=== PATIENT | male | born 1970 | race Caucasian/White ===

== ENCOUNTER → 2016-07-01 | Outpatient (CLI) | payer MEDICARE, OTHER ==
--- NOTE | 2016-07-01 12:37 | XR ---
EXAMINATION TYPE: XR knee complete LT DATE OF EXAM: 07/01/2016 12:28 PM COMPARISON: NONE HISTORY: Pain FINDINGS: Mild diffuse osteopenia. There is very mild narrowing of the medial compartment of the knee joint. No erosive change. No signi ficant spur formation. No intraosseous lesion. Osseous structures are intact. No acute fracture seen. IMPRESSION: 1. Mild osteoarthritis. 2. Diffuse mild osteopenia
== END | disposition home or self-care (01) ==
LOC: RADXRMAIN 11:56
PROVIDERS: ATTEND Family Medicine
DX: M17.12 Unilateral primary osteoarthritis, left knee (principal); M85.862 Other specified disorders of bone density and structure, left lower leg

== ENCOUNTER → 2016-08-08 | Outpatient (CLI) | payer MEDICARE, OTHER ==
--- NOTE | 2016-08-08 15:37 | BD ---
EXAMINATION TYPE: MG DEXA axial skeleton. DATE OF EXAM: 08/08/2016 2:43 PM COMPARISON: NONE CLINICAL HISTORY: disorder of bone and structure M85.80 Height: 5'6 Weight: 186 FRAX RISK QUESTIONS: Alcohol (3 or more units per day): no Family History (Parent hip fracture): no Glucocorticoids (More than 3mos): no (Ex: prednisone, prednisolone, methylprednisolone, dexamethasone, and hydrocortisone). History of Fracture in Adulthood: no Secondary Osteoporosis: 1. Type 1 Diabetes: no 2. Hyperthyroidism: no 3. Menopause before 45: NA 4. Malnutrition: no 5. Chronic liver disease: no Rheumatoid Arthritis: no Current Tobacco Use: no RISK FACTORS HISTORY OF: History of Wrist Fracture: rt When: child Diet low in dairy products/other sources of calcium: MEDICATIONS: Additional Medications: heart, ADHD, depression, high blood pressure Additional History: osteopenia EXAM MEASUREMENTS: Bone mineral densitometry was performed using the Vend System. Bone mineral density as measured about the Lumbar spine is: ----- L1-L4(G/cm2): 1.135 T Score Values are as follows: ----- L2: 0.0 ----- L3: -0.1 ----- L4: -0.9 ----- L1-L4: -0.4 Bone mineral density about the R hip (g/cm2): 0.814 Bone mineral density about the L hip (g/cm2): 0.785 T Score values are as follows: -----R Neck: -1.6 -----L Neck: -1.8 -----R Intertrochanter: -1.3 -----L Intertrochanter: -1.3 IMPRESSION: Osteopenia (T Score between -2.5 and -1 as noted by T score values: Rene Hips There is slightly increased risk of fracture and the patient may be considered for treatment. Re-Screen 1-2 years. NOTE: T-SCORE=SD OF THE YOUNG ADULT MEAN.
== END ==
LOC: RADBDWWP 14:14
PROVIDERS: ATTEND Family Medicine
DX: M85.88 Other specified disorders of bone density and structure, other site (principal)
CPT/HCPCS: 77080

== ENCOUNTER → 2017-12-12 | Outpatient (CLI) | payer MEDICARE, OTHER ==
--- NOTE | 2017-12-12 15:33 | MR ---
EXAMINATION TYPE: MR knee LT wo con DATE OF EXAM: 12/12/2017 2:22 PM COMPARISON: NONE HISTORY: Left knee pain TECHNIQUE: Multiplanar, multisequence imaging of the left knee is submitted. FINDINGS: MEDIAL MENISCUS: Anterior and posterior horns are intact without tear. LATERAL MENISCUS: Oblique tear posterior horn lateral meniscus. 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 CRUCIATE LIGAMENTS: The anterior and posterior cruciate ligaments are intact and unremarkable. COLLATERAL LIGAMENTS: The medial collateral ligament and lateral collateral ligament complex are intact and unremarkable. EXTENSOR MECHANISM: Visualized quadriceps and patellar tendons are intact. EFFUSION: No evidence for joint effusion. POPLITEAL CYST: No popliteal/shipman cyst. TRICOMPARTMENT SPACES: Narrowing of patellofemoral joint space with early changes of chondromalacia p atella. CARTILAGE: The articular cartilage is maintained without abnormal signal or full-thickness defect. BONE MARROW SIGNAL: No focal abnormal marrow signal is appreciated: OTHER: Posterior compartment muscle strain. IMPRESSION: 1. Oblique tear posterior horn lateral meniscus. 2.Posterior compartment muscle strain. 3. Changes of chondromalacia patella
== END | disposition home or self-care (01) ==
LOC: RADMRIMAIN 13:33
PROVIDERS: ATTEND Family Medicine
DX: S83.282A Other tear of lateral meniscus, current injury, left knee, initial encounter (principal); S86.112A Strain of other muscle(s) and tendon(s) of posterior muscle group at lower leg level, left leg, initial encounter; M22.42 Chondromalacia patellae, left knee

== ENCOUNTER → 2019-04-08 | Outpatient (CLI) | payer MEDICARE, OTHER ==
--- NOTE | 2019-04-08 11:38 | XR ---
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 No tendinitis or bursal calcifications. No acute fracture, sublux ation, or dislocation seen. IMPRESSION: No acute osseous abnormality seen.
== END | disposition home or self-care (01) ==
LOC: RADXRMAIN 10:47
PROVIDERS: ATTEND Physician Assistant
DX: M25.511 Pain in right shoulder (principal)

== ENCOUNTER 2019-04-10 07:51 | Day surgery (SDC) | payer MEDICARE, OTHER ==
[2019-04-08 12:32] VITALS: BMI 46.2
[~2019-04-10 07:51] MED LIST: LACTATED RINGERS 1,000 ML IV SCH; LIDOCAINE 1% 20 ML VIAL (10MG/ML) FOR IV START INTRADERMA PRN
[2019-04-10 08:24] VITALS: TEMP 97
[2019-04-10 08:33] LABS: Glucose,Whole Blood 132 mg/dL (75-99)
[2019-04-10] MEDS ORDERED: PROPOFOL 10 MG/ML 20 ML VIAL IV ONE (08:39)
--- NOTE | 2019-04-10 08:45 | P.GSHP ---
History of Present Illness H&P Date: 04/10/19 CHIEF COMPLAINT: Colon screen HISTORY OF PRESENT ILLNESS: The patient is a 49-year-old male who presents for colon screen. Lower endoscopy was offered for further evaluation and management. PAST MEDICAL HISTORY: Please see list. PAST SURGICAL HISTORY: Please see list. MEDICATIONS: Please see list. ALLERGIES: Please see list. SOCIAL HISTORY: No illicit drug use FAMILY HISTORY: No reports of Crohn disease or ulcerative colitis. REVIEW OF ORGAN SYSTEMS: CONSTITUTIONAL: No reports of fevers or chills. PHYSICAL EXAM: VITAL SIGNS: Stable GENERAL: Well-developed pleasant in no acute distress. HEENT: No scleral icterus. Extraocular movements grossly intact. Moist buccal mucosa. NECK: Supple without lymphadenopathy. CHEST: Unlabored respirations. Equal bilateral excursions. CARDIOVASCULAR: Regular rate and rhythm. Distal 2+ pulses. ABDOMEN: Soft, nontender, nondistended. MUSCULOSKELETAL: No clubbing, cyanosis, or edema. ASSESSMENT: 1. Colon screen. PLAN: 1. Recommend proceeding with a lower endoscopy Past Medical History Past Medical History: Coronary Artery Disease (CAD), Heart Failure, Diabetes Mellitus, GERD/Reflux, Hypertension, Pneumonia Additional Past Medical History / Comment(s): HX Pneumonia, respiratory prob w/ trach, 2009 est. History of Any Multi-Drug Resistant Organisms: None Reported Past Surgical History: Tonsillectomy Additional Past Surgical History / Comment(s): Trach Past Anesthesia/Blood Transfusion Reactions: No Reported Reaction Smoking Status: Former smoker - Past Family History Mother Family Medical History: No Reported History Medications and Allergies Home Medications Medication Instructions Recorded Confirmed Type Atomoxetine HCl [Strattera] 100 mg PO QAM 04/08/19 04/10/19 History Atorvastatin [Lipitor] 20 mg PO HS 04/08/19 04/10/19 History Carvedilol [Coreg] 25 mg PO BID 04/08/19 04/10/19 History Cholecalciferol [Vitamin D3 (25 1,000 unit PO DAILY 04/08/19 04/10/19 History Mcg = 1000 Iu)] Empagliflozin [Jardiance] 25 mg PO DAILY 04/08/19 04/10/19 History Glimepiride [Amaryl] 4 mg PO DAILY 04/08/19 04/10/19 History HYDROcodone/APAP 10-325MG [[place] 1 tab PO TID PRN 04/08/19 04/10/19 History 10-325] Hydrochlorothiazide [Hydrodiuril] 25 mg PO DAILY 04/08/19 04/10/19 History Loratadine [Claritin] 10 mg PO DAILY 04/08/19 04/10/19 History Losartan Potassium [Cozaar] 100 mg PO DAILY 04/08/19 04/10/19 History OXcarbazepine [Trileptal] 150 mg PO HS 04/08/19 04/10/19 History Omeprazole [PriLOSEC] 40 mg PO DAILY 04/08/19 04/10/19 History Venlafaxine HCl ER [Effexor Xr] 150 mg PO DAILY 04/08/19 04/10/19 History lamoTRIgine [LaMICtal] 150 mg PO BID 04/08/19 04/10/19 History metFORMIN HCL [Glucophage] 500 mg PO DAILY 04/08/19 04/10/19 History traZODone HCL 150 mg PO HS 04/08/19 04/10/19 History Allergies Allergy/AdvReac Type Severity Reaction Status Date / Time aripiprazole [From Abilify] Allergy Severe Rash/Hives Verified 04/10/19 08:18 cyclobenzaprine Allergy Unknown Verified 04/08/19 11:50 [From Flexeril] Surgical - Exam Vital Signs Temp Pulse Resp BP Pulse Ox 97.0 F L 82 18 126/78 96 04/10/19 08:19 04/10/19 08:19 04/10/19 08:19 04/10/19 08:19 04/10/19 08:19 Results - Labs Abnormal Lab Results - Last 24 Hours (Table) 04/10/19 Range/Units 08:29 POC Glucose (mg/dL) 132 H (75-99) mg/dL
--- NOTE | 2019-04-10 08:58 | P.PCN ---
Date of Procedure: 04/10/19 Description of Procedure: PREOPERATIVE DIAGNOSIS: Colonoscopy screening Personal history of colon polyps POSTOPERATIVE DIAGNOSIS: Colonoscopy screening Personal history of colon polyps Ascending colon tubular adenoma OPERATION: Colonoscopy to the ileocecal valve and appendiceal orifice. Colonoscopy with cold forceps biopsy SURGEON: June Krishnamurthy MD. ANESTHESIA: MAC. INDICATIONS: The patient is a 49-year-old male who presents for colonoscopy screening. He reports personal history of colon polyps. Benefits and risks were described and informed consent was obtained. DESCRIPTION OF PROCEDURE: The patient had undergone Suprep. He had been brought into the operating room and laid in the left lateral decubitus position. After adequate intravenous sedation, the rectum was examined with 2% lidocaine jelly. No external hemorrhoids were encountered. The rectal tone was within normal limits. No lesions were palpated in the rectal vault. An Olympus colonoscope was advanced until the ileocecal valve and appendiceal orifice were clearly viewed. The prep was excellent. No scattered diverticulosis was encountered. Ascending colonic polyp was found and cold forcep biopsy. No evidence of focal colitis was found. Retroflexion of the scope demonstrated no internal hemorrhoids. The colon was desufflated. The patient had tolerated the procedure well. Withdrawal time was over 6 minutes. FINDINGS: Aronchick preparation quality scale 1 (1-5) No internal hemorrhoids with inflammation No external hemorrhoids with inflammation No arteriovenous malformations. No sigmoid diverticulosis Removal 1 polyp: - Cold forceps biopsy at proximal ascending colon, 4 mm polyp. No focal colitis. RECOMMENDATIONS: Repeat colonoscopy 5 years, 2023 Plan - Discharge Summary Discharge Rx Participant: Yes New Discharge Prescriptions: No Action HYDROcodone/APAP 10-325MG [[place] 10-325] 1 tab PO TID PRN PRN Reason: Pain lamoTRIgine [LaMICtal] 150 mg PO BID Venlafaxine HCl ER [Effexor Xr] 150 mg PO DAILY Atomoxetine HCl [Strattera] 100 mg PO QAM traZODone HCL 150 mg PO HS metFORMIN HCL [Glucophage] 500 mg PO DAILY Losartan Potassium [Cozaar] 100 mg PO DAILY OXcarbazepine [Trileptal] 150 mg PO HS Glimepiride [Amaryl] 4 mg PO DAILY Atorvastatin [Lipitor] 20 mg PO HS Loratadine [Claritin] 10 mg PO DAILY Hydrochlorothiazide [Hydrodiuril] 25 mg PO DAILY Omeprazole [PriLOSEC] 40 mg PO DAILY Empagliflozin [Jardiance] 25 mg PO DAILY Carvedilol [Coreg] 25 mg PO BID Cholecalciferol [Vitamin D3 (25 Mcg = 1000 Iu)] 1,000 unit PO DAILY Discharge Medication List Atomoxetine HCl [Strattera] 100 mg PO QAM 04/08/19 [History] Atorvastatin [Lipitor] 20 mg PO HS 04/08/19 [History] Carvedilol [Coreg] 25 mg PO BID 04/08/19 [History] Cholecalciferol [Vitamin D3 (25 Mcg = 1000 Iu)] 1,000 unit PO DAILY 04/08/19 [History] Empagliflozin [Jardiance] 25 mg PO DAILY 04/08/19 [History] Glimepiride [Amaryl] 4 mg PO DAILY 04/08/19 [History] HYDROcodone/APAP 10-325MG [[place] 10-325] 1 tab PO TID PRN 04/08/19 [History] Hydrochlorothiazide [Hydrodiuril] 25 mg PO DAILY 04/08/19 [History] Loratadine [Claritin] 10 mg PO DAILY 04/08/19 [History] Losartan Potassium [Cozaar] 100 mg PO DAILY 04/08/19 [History] OXcarbazepine [Trileptal] 150 mg PO HS 04/08/19 [History] Omeprazole [PriLOSEC] 40 mg PO DAILY 04/08/19 [History] Venlafaxine HCl ER [Effexor Xr] 150 mg PO DAILY 04/08/19 [History] lamoTRIgine [LaMICtal] 150 mg PO BID 04/08/19 [History] metFORMIN HCL [Glucophage] 500 mg PO DAILY 04/08/19 [History] traZODone HCL 150 mg PO HS 04/08/19 [History] Follow up Appointment(s)/Referral(s): June Krishnamurthy MD [STAFF PHYSICIAN] - As Needed Patient Instructions/Handouts: Colorectal Polyps (GEN) Activity/Diet/Wound Care/Special Instructions: Repeat colonoscopy 5 years2023 Discharge Disposition: HOME SELF-CARE
[2019-04-10 09:04] VITALS: BP 119/69; PULSE 79; RESP 16
== END 2019-04-10 09:45 | disposition home or self-care (01) ==
LOC: ORWHC2ENDO 07:51
PROVIDERS: ATTEND Surgery Plastic and Reconstructive Surgery
DX: Z12.11 Encounter for screening for malignant neoplasm of colon (principal); D12.2 Benign neoplasm of ascending colon; Z86.010 Personal history of colon polyps; I25.10 Atherosclerotic heart disease of native coronary artery without angina pectoris; I11.0 Hypertensive heart disease with heart failure; I50.9 Heart failure, unspecified; E78.5 Hyperlipidemia, unspecified; E11.9 Type 2 diabetes mellitus without complications; F41.9 Anxiety disorder, unspecified; F98.8 Other specified behavioral and emotional disorders with onset usually occurring in childhood and adolescence; F31.9 Bipolar disorder, unspecified; K21.9 Gastro-esophageal reflux disease without esophagitis; E66.01 Morbid (severe) obesity due to excess calories; Z79.02 Long term (current) use of antithrombotics/antiplatelets; Z79.84 Long term (current) use of oral hypoglycemic drugs; Z79.899 Other long term (current) drug therapy; Z88.8 Allergy status to other drugs, medicaments and biological substances; Z87.01 Personal history of pneumonia (recurrent); Z90.89 Acquired absence of other organs; Z87.891 Personal history of nicotine dependence; Z68.42 Body mass index [BMI] 45.0-49.9, adult
CPT/HCPCS: 88305; 45380; J2704

== ENCOUNTER 2020-10-15 07:14 | Day surgery (SDC) | payer MEDICARE, OTHER ==
[2020-10-14 11:59] VITALS: BMI 29.7
--- NOTE | 2020-10-15 07:43 | P.GSHP ---
History of Present Illness H&P Date: 10/15/20 CHIEF COMPLAINT: GERD and colon screen HISTORY OF PRESENT ILLNESS: The patient is a 50-year-old male who presents with gastroesophageal reflux disease and need for colon screen. Upper and lower endoscopy were offered for further evaluation and management. PAST MEDICAL HISTORY: Please see list. PAST SURGICAL HISTORY: Please see list. MEDICATIONS: Please see list. ALLERGIES: Please see list. SOCIAL HISTORY: No illicit drug use FAMILY HISTORY: No reports of Crohn disease or ulcerative colitis. REVIEW OF ORGAN SYSTEMS: CONSTITUTIONAL: No reports of fevers or chills. GI: Denies any blood in stools or constipation. PHYSICAL EXAM: VITAL SIGNS: Stable GENERAL: Well-developed pleasant in no acute distress. HEENT: No scleral icterus. Extraocular movements grossly intact. Moist buccal mucosa. NECK: Supple without lymphadenopathy. CHEST: Unlabored respirations. Equal bilateral excursions. CARDIOVASCULAR: Regular rate and rhythm. Distal 2+ pulses. ABDOMEN: Soft, nondistended. MUSCULOSKELETAL: No clubbing, cyanosis, or edema. ASSESSMENT: 1. Gastroesophageal reflux disease 2. Colon screen. PLAN: 1. Recommend proceeding with an upper and lower endoscopy Past Medical History Past Medical History: Coronary Artery Disease (CAD), Heart Failure, Diabetes Mellitus Additional Past Medical History / Comment(s): bowel changes History of Any Multi-Drug Resistant Organisms: None Reported Additional Past Surgical History / Comment(s): trach placed and removed. colonoscopy. knee scope Past Anesthesia/Blood Transfusion Reactions: No Reported Reaction Smoking Status: Former smoker Medications and Allergies Home Medications Medication Instructions Recorded Confirmed Type Atomoxetine HCl [Strattera] 100 mg PO QAM 04/08/19 10/14/20 History Atorvastatin [Lipitor] 20 mg PO HS 04/08/19 10/14/20 History Carvedilol [Coreg] 25 mg PO BID 04/08/19 10/14/20 History Cholecalciferol [Vitamin D3 (25 500 unit PO DAILY 04/08/19 10/14/20 History Mcg = 1000 Iu)] Empagliflozin [Jardiance] 25 mg PO AC-SUPPER 04/08/19 10/14/20 History Glimepiride [Amaryl] 4 mg PO DAILY 04/08/19 10/14/20 History HYDROcodone/APAP 10-325MG [[place] 1 tab PO TID PRN 04/08/19 10/14/20 History 10-325] Loratadine [Claritin] 10 mg PO DAILY PRN 04/08/19 10/14/20 History Losartan Potassium [Cozaar] 100 mg PO DAILY 04/08/19 10/14/20 History OXcarbazepine [Trileptal] 150 mg PO HS 04/08/19 10/14/20 History Omeprazole [PriLOSEC] 40 mg PO DAILY 04/08/19 10/14/20 History hydroCHLOROthiazide [Hydrodiuril] 25 mg PO DAILY 04/08/19 10/14/20 History lamoTRIgine [LaMICtal] 150 mg PO BID 04/08/19 10/14/20 History metFORMIN HCL [Glucophage] 500 mg PO DAILY 04/08/19 10/14/20 History traZODone HCL 150 mg PO HS 04/08/19 10/14/20 History Venlafaxine HCl ER [Effexor Xr] 150 mg PO DAILY 10/14/20 10/14/20 History Allergies Allergy/AdvReac Type Severity Reaction Status Date / Time aripiprazole [From Abilify] Allergy Severe Rash/Hives Verified 10/15/20 07:37 cyclobenzaprine Allergy Unknown Verified 10/15/20 07:37 [From Flexeril]
[2020-10-15] MEDS ORDERED: LIDOCAINE 1% (10MG/ML) FOR IV START INTRADERMA ONE (07:45)
[2020-10-15] MEDS ORDERED: LACTATED RINGERS 1,000 ML IV ONE (07:45)
[2020-10-15 07:50] VITALS: RESP 16; TEMP 97.1
[2020-10-15 07:55] LABS: Glucose,Whole Blood 122 mg/dL (75-99)
[2020-10-15] MEDS ORDERED: LIDOCAINE 1% INJ 10MG/ML (20 ML MDV) ONE (08:14)
[2020-10-15] MEDS ORDERED: PROPOFOL 10 MG/ML 20 ML VIAL IV ONE (08:14)
--- NOTE | 2020-10-15 08:59 | P.PCN ---
Date of Procedure: 10/15/20 Description of Procedure: PREOPERATIVE DIAGNOSIS: Gastroesophageal reflux disease Epigastric abdominal pain Dysphagia History of tracheostomy POSTOPERATIVE DIAGNOSIS: Upper esophageal stenosis Severe gastritis with recent bleed Gastric ulcers OPERATION: Esophagogastroduodenoscopy with rigid dilator over the guidewire 57 Fr with dilation Esophagogastroduodenoscopy with cold forceps biopsies stomach/antrum SURGEON: June Krishnamurthy MD ANESTHESIA: MAC. INDICATIONS: The patient is a 50-year-old male who presents with a history of gastroesophageal reflux disease with abdominal pain. Benefits and risks of the procedure were described. Informed consent was obtained. DESCRIPTION: The patient was brought into the endoscopy suite and laid in the left lateral decubitus position. After a timeout was confirmed, the procedure was initiated. An Olympus gastroscope was passed into the posterior oropharynx where an upper esophageal stenosis was identified. The scope was passed down to the distal esophagus. To address the upper esophageal stenosis, rigid dilator over guidewire was selected. Next using an Malian rigid dilator, a guidewire was placed through the gastroscope. Next the scope was withdrawn. A 57-Danish rigid Malian dilator was passed carefully along the posterior oropharynx to 45 cm and left in place for 2-3 minutes stretch. The dilator was withdrawn including the guidewire. The scope was reentered along the posterior oropharynx with no findings of full- thickness tear of the upper esophageal sphincter. Additional findings below. Within the stomach, severe acute gastritis with gastric ulcerations were identified along the body of the stomach with cold forceps biopsies obtained. The large esophageal valve was evaluated with Hill grade 2 lower esophageal valve. LA grade B erosive esophagitis was identified. No full-thickness injury was encountered. The GI tract was desufflated. The patient tolerated the procedure well. FINDINGS: Upper esophageal stenosis dilated 57-Danish rigid dilator Diaphragmatic hiatus at 42 cm from the incisors Squamocolumnar junction 42 cm from the incisors. Severe gastritis along the gastric body and fundus cold forceps biopsies obtained Acute gastric ulcerations identified. Duodenum with mild duodenitis LA grade B erosive esophagitis Hill grade 2 lower esophageal valve. RECOMMENDATIONS: Omeprazole 40 mg daily Repeat upper endoscopy 4 weeks
--- NOTE | 2020-10-15 09:07 | P.PCN ---
Date of Procedure: 10/15/20 Description of Procedure: PREOPERATIVE DIAGNOSIS: Personal history of colon polyps Change in bowel habits POSTOPERATIVE DIAGNOSIS: Sigmoid diverticulosis Change in bowel habits Rectal adenoma OPERATION: Colonoscopy to the ileocecal valve and appendiceal orifice, cecum Colonoscopy with cold forceps biopsy SURGEON: June Krishnamurthy MD. ANESTHESIA: MAC. INDICATIONS: The patient is an 50-year-old male who presents with change in bowel habits including personal history of polyps. Last colonoscopy was than 5 years. Benefits and risks were described and informed consent was obtained. DESCRIPTION OF PROCEDURE: The patient had undergone S[place]ab prep. The patient had been brought into the operating room and laid in the left lateral decubitus position. After adequate intravenous sedation, the rectum was examined with 2% lidocaine jelly. The prostate was unremarkable. No external hemorrhoids were encountered. The rectal tone was within normal limits. No lesions were palpated in the rectal vault. An Olympus colonoscope was advanced until the cecum, ileocecal valve and appendiceal orifice were clearly viewed. The prep was good. Sigmoid diverticulosis was encountered. Colonic polyps were found and removed. Random biopsies were obtained for colitis. Retroflexion of the scope demonstrated grade 2 internal hemorrhoids without active bleeding or inflammation. The colon was desufflated. The patient had tolerated the procedure well. Withdrawal time was over 6 minutes. FINDINGS: Aronchick preparation quality scale 2 (1-5) Internal hemorrhoids, grade 1 No external hemorrhoids No arteriovenous malformations. Sigmoid diverticulosis Random biopsies for colitis with cold forceps Removal of 1 polyp: - Cold forceps biopsy at 10 cm from the anal verge, 5 mm polyp, rectal RECOMMENDATIONS: Repeat colonoscopy 3 years, 2023 Plan - Discharge Summary Discharge Rx Participant: No New Discharge Prescriptions: New Omeprazole [PriLOSEC] 40 mg PO DAILY #14 cap Continue HYDROcodone/APAP 10-325MG [[place] 10-325] 1 tab PO TID PRN PRN Reason: Pain lamoTRIgine [LaMICtal] 150 mg PO BID Atomoxetine HCl [Strattera] 100 mg PO QAM traZODone HCL 150 mg PO HS metFORMIN HCL [Glucophage] 500 mg PO DAILY Losartan Potassium [Cozaar] 100 mg PO DAILY OXcarbazepine [Trileptal] 150 mg PO HS Glimepiride [Amaryl] 4 mg PO DAILY Atorvastatin [Lipitor] 20 mg PO HS Loratadine [Claritin] 10 mg PO DAILY PRN PRN Reason: Allergy Symptoms hydroCHLOROthiazide [Hydrodiuril] 25 mg PO DAILY Omeprazole [PriLOSEC] 40 mg PO DAILY Empagliflozin [Jardiance] 25 mg PO AC-SUPPER Carvedilol [Coreg] 25 mg PO BID Cholecalciferol [Vitamin D3 (25 Mcg = 1000 Iu)] 500 unit PO DAILY Venlafaxine HCl ER [Effexor XR] 150 mg PO DAILY Discharge Medication List Atomoxetine HCl [Strattera] 100 mg PO QAM 04/08/19 [History] Atorvastatin [Lipitor] 20 mg PO HS 04/08/19 [History] Carvedilol [Coreg] 25 mg PO BID 04/08/19 [History] Cholecalciferol [Vitamin D3 (25 Mcg = 1000 Iu)] 500 unit PO DAILY 04/08/19 [History] Empagliflozin [Jardiance] 25 mg PO AC-SUPPER 04/08/19 [History] Glimepiride [Amaryl] 4 mg PO DAILY 04/08/19 [History] HYDROcodone/APAP 10-325MG [[place] 10-325] 1 tab PO TID PRN 04/08/19 [History] Loratadine [Claritin] 10 mg PO DAILY PRN 04/08/19 [History] Losartan Potassium [Cozaar] 100 mg PO DAILY 04/08/19 [History] OXcarbazepine [Trileptal] 150 mg PO HS 04/08/19 [History] Omeprazole [PriLOSEC] 40 mg PO DAILY 04/08/19 [History] hydroCHLOROthiazide [Hydrodiuril] 25 mg PO DAILY 04/08/19 [History] lamoTRIgine [LaMICtal] 150 mg PO BID 04/08/19 [History] metFORMIN HCL [Glucophage] 500 mg PO DAILY 04/08/19 [History] traZODone HCL 150 mg PO HS 04/08/19 [History] Venlafaxine HCl ER [Effexor XR] 150 mg PO DAILY 10/14/20 [History] Omeprazole [PriLOSEC] 40 mg PO DAILY #14 cap 10/15/20 [Rx] Follow up Appointment(s)/Referral(s): June Krishnamurthy MD [STAFF PHYSICIAN] - 10/29/20 Patient Instructions/Handouts: Gastritis (DC), Diet for Stomach Ulcers and Gastritis (ED), Peptic Ulcer (DC), Diverticulosis Diet (GEN), Diverticulosis (DC) Activity/Diet/Wound Care/Special Instructions: Start medications. Discharge Disposition: HOME SELF-CARE
[2020-10-15 09:26] VITALS: BP 112/71; PULSE 77
== END 2020-10-15 09:57 | disposition home or self-care (01) ==
LOC: ORWHC2ENDO 07:14
PROVIDERS: ATTEND Surgery Plastic and Reconstructive Surgery
DX: Z12.11 Encounter for screening for malignant neoplasm of colon (principal); K22.2 Esophageal obstruction; K25.9 Gastric ulcer, unspecified as acute or chronic, without hemorrhage or perforation; K57.30 Diverticulosis of large intestine without perforation or abscess without bleeding; K62.1 Rectal polyp; K64.0 First degree hemorrhoids; K22.10 Ulcer of esophagus without bleeding; K29.71 Gastritis, unspecified, with bleeding; K21.9 Gastro-esophageal reflux disease without esophagitis; I25.10 Atherosclerotic heart disease of native coronary artery without angina pectoris; I11.0 Hypertensive heart disease with heart failure; I50.9 Heart failure, unspecified; E11.9 Type 2 diabetes mellitus without complications; E78.5 Hyperlipidemia, unspecified; F41.9 Anxiety disorder, unspecified; F32.9 Major depressive disorder, single episode, unspecified; Z93.0 Tracheostomy status; Z86.010 Personal history of colon polyps; Z98.890 Other specified postprocedural states; Z90.89 Acquired absence of other organs; Z87.891 Personal history of nicotine dependence; Z79.84 Long term (current) use of oral hypoglycemic drugs; Z79.899 Other long term (current) drug therapy; Z88.8 Allergy status to other drugs, medicaments and biological substances
CPT/HCPCS: 88305; 45380; 43239; 43248; J2001; J2704; 43249

== ENCOUNTER → 2020-12-08 | Outpatient (CLI) | payer MEDICARE, OTHER ==
--- NOTE | 2020-12-08 08:34 | US ---
EXAMINATION TYPE: US gallbladder DATE OF EXAM: 12/08/2020 COMPARISON: NONE CLINICAL HISTORY: K82.9 Disorder of gallbladder. Pain EXAM MEASUREMENTS: Liver Length: 16.5 cm Gallbladder Wall: .2 cm CBD: .4 cm Right Kidney: 9.7 x 4.4 x 3.8 cm Pancreas: Obscured by bowel gas Liver: Increased attenuation suggestive of fatty infiltration of the liver. No discrete hepatic mas s or intrahepatic biliary dilatation. Gallbladder: No stones seen Evidence for sonographic Mcqueen's sign: No CBD: wnl Right Kidney: No hydronephrosis or masses seen IMPRESSION: 1. Diffuse fatty infiltration of the liver. 2. The pancreas is not visualized due to overlying bowel gas. 3. No gallstones. No hydronephrosis or right renal calculi.
== END | disposition home or self-care (01) ==
LOC: RADUSWWP 07:09
PROVIDERS: ATTEND Surgery Plastic and Reconstructive Surgery
DX: K76.0 Fatty (change of) liver, not elsewhere classified (principal)
CPT/HCPCS: 76705

== ENCOUNTER → 2020-12-08 | Outpatient (CLI) | payer MEDICARE, OTHER ==
--- NOTE | 2020-12-08 16:37 | NM ---
EXAMINATION TYPE: NM hepatobiliary w EF DATE OF EXAM: 12/08/2020 COMPARISON: Same date gallbladder ultrasound. HISTORY: Disorder of the gallbladder. Constipation and diarrhea per patient. TECHNIQUE: After the intravenous administration of 4.2 mCi Tc 99m Mebrofenin hepatobiliary scintigrap hy is performed. Immediate images post injection. FINDINGS: There is satisfactory initial accumulation of tracer by the liver. The gallbladder is visualized wit hin 20 minutes. The small bowel activity is noted within 20 minutes. At one hour 8 ounces of oral e nsure plus is given to mimic CCK and gallbladder ejection fraction is calculated at 96 %, not deviate d from the normal range. Therefore there is no scintigraphic evidence of cystic or common bile duct obstruction to suggest acute cholecystitis or gallbladder hypokinesia. IMPRESSION: Ejection fraction is 96%, some concern this abnormal or a hyperkinetic response.
== END | disposition home or self-care (01) ==
LOC: RADNMMAIN 12:56
PROVIDERS: ATTEND Surgery Plastic and Reconstructive Surgery
DX: R93.2 Abnormal findings on diagnostic imaging of liver and biliary tract (principal)
CPT/HCPCS: 78226; A9537

== ENCOUNTER → 2021-01-08 | Outpatient (CLI) | payer MEDICARE, OTHER | END | disposition home or self-care (01) | LOC: LABWHC1 11:33 | PROVIDERS: ATTEND Surgery Plastic and Reconstructive Surgery | DX: I11.9 Hypertensive heart disease without heart failure (principal); R94.31 Abnormal electrocardiogram [ECG] [EKG] | CPT/HCPCS: 36415; 93005 ==

== ENCOUNTER 2021-04-16 06:57 | Day surgery (SDC) | payer MEDICARE, OTHER ==
[2021-04-15 09:28] VITALS: BMI 30.5
--- NOTE | 2021-04-16 06:17 | P.GSHP ---
History of Present Illness H&P Date: 04/16/21 CHIEF COMPLAINT: Cholecystitis HISTORY OF PRESENT ILLNESS: The patient is a 51-year-old male who presents with history of epigastric including right upper quadrant abdominal pain. He underwent diagnostic studies for the gallbladder. Separately his clinical picture was consistent with cholecystitis. Now he presents for surgical intervention. PAST MEDICAL HISTORY: Please see list PAST SURGICAL HISTORY: Please see list MEDICATIONS: Please see list ALLERGIES: Denies. SOCIAL HISTORY: No illicit drug use or recent tobacco use FAMILY HISTORY: Pertinent for gallbladder disease REVIEW OF ORGAN SYSTEMS: CONSTITUTIONAL: No reports of fevers or chills. HEENT: Denies any troubles with the vision or hearing. RESPIRATORY: No recent pneumonias. CARDIOVASCULAR: Denies chest pain or palpitations GI: No blood in stools or constipation. MUSCULOSKELETAL: Has occasional joint pain including back pain. NEURO: No seizure disorders or headaches. No recent stroke. PSYCH: No depression or suicidal ideation. HEMATOLOGIC: No personal or family history of DVTs or pulmonary emboli. PHYSICAL EXAM: VITAL SIGNS: Afebrile vital signs stable GENERAL: Well-developed pleasant male in no acute distress. HEENT: No scleral icterus. Extraocular movements grossly intact. Moist buccal mucosa. NECK: Supple without lymphadenopathy. CHEST: Unlabored respirations. Equal bilateral excursions. CARDIOVASCULAR: Regular rate regular rhythm rhythm. Distal 2+ pulses. ABDOMEN: Soft, nondistended. Tender along the epigastrium and right upper quadrant. MUSCULOSKELETAL: No clubbing, cyanosis, or edema. NEURO : No focal or lateralizing signs. Cranial nerves II-12 within normal limits. PSYCH: Alert and oriented to person, place and time. SKIN: Well perfused. Good skin turgor. ASSESSMENT: 1. Epigastric and right upper quadrant abdominal pain 2. Chronic cholecystitis PLAN: 1. Will need a robotic cholecystectomy possible open. Benefits and risks were described. 2. Heparin for DVT prophylaxis 5000 units. 3. Antibiotic prophylaxis. 4. He is elevated risk due to multiple co-morbidities 5. CMP and CBC pre-op 6. Non-narcotic pain management reviewed. Past Medical History Past Medical History: Coronary Artery Disease (CAD), Heart Failure, Diabetes Mellitus, GERD/Reflux, Musculoskeletal Disorder Additional Past Medical History / Comment(s): Hx back, knee pain. Stomach ulcer hx History of Any Multi-Drug Resistant Organisms: None Reported Past Surgical History: Tonsillectomy Additional Past Surgical History / Comment(s): trach placed and removed. colonoscopy. knee scope Past Anesthesia/Blood Transfusion Reactions: No Reported Reaction Smoking Status: Former smoker - Past Family History Mother Family Medical History: No Reported History Medications and Allergies Home Medications Medication Instructions Recorded Confirmed Type Atomoxetine HCl [Strattera] 100 mg PO QAM 04/08/19 04/15/21 History Atorvastatin [Lipitor] 20 mg PO HS 04/08/19 04/15/21 History Carvedilol [Coreg] 25 mg PO BID 04/08/19 04/15/21 History Cholecalciferol [Vitamin D3 (25 500 unit PO DAILY 04/08/19 04/15/21 History Mcg = 1000 Iu)] Empagliflozin [Jardiance] 25 mg PO AC-SUPPER 04/08/19 04/15/21 History Glimepiride [Amaryl] 4 mg PO DAILY 04/08/19 04/15/21 History HYDROcodone/APAP 10-325MG [[place] 1 tab PO TID PRN 04/08/19 04/15/21 History 10-325] Loratadine [Claritin] 10 mg PO DAILY PRN 04/08/19 04/15/21 History Losartan Potassium [Cozaar] 100 mg PO DAILY 04/08/19 04/15/21 History OXcarbazepine [Trileptal] 150 mg PO HS 04/08/19 04/15/21 History hydroCHLOROthiazide [Hydrodiuril] 25 mg PO DAILY 04/08/19 04/15/21 History lamoTRIgine [LaMICtal] 150 mg PO BID 04/08/19 04/15/21 History metFORMIN HCL [Glucophage] 500 mg PO DAILY 04/08/19 04/15/21 History traZODone HCL 200 mg PO HS 04/08/19 04/15/21 History Venlafaxine HCl ER [Effexor XR] 150 mg PO DAILY 10/14/20 04/15/21 History Omeprazole [PriLOSEC] 40 mg PO DAILY #30 cap 10/15/20 04/15/21 Rx Dicyclomine [Bentyl] 10 mg PO TID PRN 04/15/21 04/15/21 History Allergies Allergy/AdvReac Type Severity Reaction Status Date / Time aripiprazole [From Abilify] Allergy Severe Rash/Hives Verified 04/15/21 09:14 cyclobenzaprine Allergy Unknown Verified 04/15/21 09:14 [From Flexeril]
[~2021-04-16 06:57] MED LIST changes: +ACETAMINOPHEN TAB 500 MG TAB PO STA; +DEXAMETHASONE SOD PHOSPHATE 4 MG/ML 1 ML VIAL IV ONE; +HEPARIN SODIUM,PORCINE/PF 5,000 UNIT/0.5 ML SYRINGE SQ PRN; +HYDROmorphone 0.5 MG/0.5 ML SYRINGE IVP PRN; +INDOCYANINE GREEN 25 MG VIAL IV STA; -LIDOCAINE 1% 20 ML VIAL (10MG/ML) FOR IV START INTRADERMA PRN; +ONDANSETRON 4 MG/2 ML VIAL IVP ONE; +TAMSULOSIN 0.4 MG CAP.ER.24H PO STA
[2021-04-16 07:49] LABS: Glucose,Whole Blood 157 mg/dL (75-99)
[2021-04-16 08:14] LABS: Basophils # (A) 0.1 k/uL (0-0.2); Basophils % (A) 1 %; Eosinophils # (A) 0.2 k/uL (0-0.7); Eosinophils % (A) 2 %; HCT 45.4 % (39.0-53.0); HGB 15.2 gm/dL (13.0-17.5); Lymphocytes # (A) 3.1 k/uL (1.0-4.8); Lymphocytes % (A) 35 %; MCH 26.7 pg (25.0-35.0); MCHC 33.6 g/dL (31.0-37.0); MCV 79.5 fL (80.0-100.0); Mean Platelet Volume 8.5; Monocytes # (A) 0.6 k/uL (0-1.0); Monocytes % (A) 7 %; Neutrophils # (A) 4.7 k/uL (1.3-7.7); Neutrophils % (A) 54 %; Platelet Count 152 k/uL (150-450); RBC 5.72 m/uL (4.30-5.90); RDW 13.1 % (11.5-15.5); WBC 8.8 k/uL (3.8-10.6)
[2021-04-16 08:28] LABS: ALT 37 U/L (4-49); AST 34 U/L (17-59); African American GFR (CKD) >90 (>60 ml/min/1.73 sqM); Albumin 4.2 g/dL (3.5-5.0); Alkaline Phosphatase 75 U/L (38-126); Anion Gap 9 mmol/L; Blood Urea Nitrogen 18 mg/dL (9-20); Calcium 9.5 mg/dL (8.4-10.2); Carbon Dioxide 30 mmol/L (22-30); Chloride 97 mmol/L (98-107); Glucose 172 mg/dL (74-99); Non-African American GFR(CKD) >90 (>60 ml/min/1.73 sqM); Sodium 136 mmol/L (137-145); Total Bilirubin 0.7 mg/dL (0.2-1.3); Total Protein 7.3 g/dL (6.3-8.2)
[2021-04-16] MEDS ORDERED: PHENYLEPHRINE-0.9% NACL SYG 1,000 MCG/10 ML SYRINGE ONE (08:39)
[2021-04-16] MEDS ORDERED: MIDAZOLAM 2 MG/2 ML VIAL ONE (08:39)
[2021-04-16] MEDS ORDERED: GLYCOPYRROLATE 0.2 MG/ML 2 ML VIAL ONE (08:39)
[2021-04-16] MEDS ORDERED: PROPOFOL 10 MG/ML 20 ML VIAL IV ONE (08:39)
[2021-04-16] MEDS ORDERED: LIDOCAINE 1% INJ 10MG/ML (20 ML MDV) ONE (08:39)
[2021-04-16] MEDS ORDERED: SUCCINYLCHOLINE CHLORIDE 100 MG/5 ML SYR IV ONE (08:39)
[2021-04-16] MEDS ORDERED: ePHEDrine 50 MG/ML 1 ML AMP ONE (08:39)
[2021-04-16] MEDS ORDERED: KETOROLAC 15 MG/ML 1 ML VIAL ONE (08:39)
[2021-04-16] MEDS ORDERED: NEOSTIGMINE 1 MG/ML 10 ML VIAL ONE (08:39)
[2021-04-16] MEDS ORDERED: ROCURONIUM 10 MG/ML (5 ML VIAL) IV ONE (08:39)
[2021-04-16] MEDS ORDERED: fentaNYL (PF) 50 MCG/ML 2 ML AMP ONE (08:39)
[2021-04-16] MEDS ORDERED: MELOXICAM 7.5 MG TAB PO SCH (09:00)
[2021-04-16] MEDS ORDERED: BUPIVACAIN-EPI 0.25%-1:200,000 30 ML VIAL SQ ONE (09:10)
[2021-04-16] MEDS ORDERED: LACTATED RINGERS 1,000 ML IV ONE ×2 (09:15→12:35)
[2021-04-16 10:32] VITALS: TEMP 96.8
[2021-04-16 12:58] VITALS: BP 118/71; PULSE 71; RESP 16
--- NOTE | 2021-04-21 10:17 | P.OP ---
Date of Procedure: 04/16/21 Description of Procedure: SURGEON: JUNE KRISHNAMURTHY MD PREOPERATIVE DIAGNOSES: 1. Symptomatic gallstones 2. Right upper quadrant abdominal pain 3. Diabetes type 2 [id number] 4. Hypertensive heart disease with congestive heart failure 5. Coronary artery disease 6. Generalized anxiety disorder 7. Depressive disorder 8. Bipolar disorder 9. Chronic pain syndrome 10. Obesity due to excess calories, BMI 30.1 11. Seizure disorder 12. ADD with ADHD 13. Gastroesophageal reflux disease 14. Hyperlipidemia POSTOPERATIVE DIAGNOSES: 1. Chronic cholecystitis 2. Peritoneal adhesions, right upper quadrant 3. Diabetes type 2 [id number] 4. Hypertensive heart disease with congestive heart failure 5. Coronary artery disease 6. Generalized anxiety disorder 7. Depressive disorder 8. Bipolar disorder 9. Chronic pain syndrome 10. Obesity due to excess calories, BMI 30.1 11. Seizure disorder 12. ADD with ADHD 13. Gastroesophageal reflux disease 14. Hyperlipidemia OPERATION: 1. Robotic-assisted da Brianne Xi laparoscopic lysis of adhesions over 30 minutes 2. Robotic-assisted da Brianne Xi laparoscopic cholecystectomy, multiport with FIREFLY ESTIMATED BLOOD LOSS: 5 mL. SPECIMENS REMOVED: Gallbladder. COMPLICATIONS: None. OPERATIVE FINDINGS: 1. Moderate scarring over entire gallbladder with peritoneal adhesions, pericholecystic with features of chronic cholecystitis requiring extensive lysis of adhesions 2. Bilateral inguinal hernia, indirect 3. Left lower quadrant scar with sigmoid colon INDICATIONS: The patient is a 51-year-old male who presents with right upper quadrant abdominal pain and cholecystitis. Robotic assisted laparoscopic approach was described. Benefits and risks of the procedure including but not limited to bleeding, infection, injury to the biliary tree was described. Informed consent was obtained. DESCRIPTION OF PROCEDURE: Patient was brought to the operating room, placed in supine position. After general induction, the abdomen had been prepped and draped in standard sterile fashion. The robotic da Brianne XI system was primed. After a timeout protocol was performed, the patient had been prepped and draped in standard sterile fashion. The patient was injected with indocyanine green. A 5 mm 0 degrees laparoscopic trocar entry was performed along the left upper quadrant. The abdomen insufflated to 15 mmHg pressure which was tolerated well. Diagnostic laparoscopy demonstrated no injury to bowel viscera or mesentery. The liver surface was unremarkable. Next, two 8 mm robotic ports were placed along the right upper abdomen. The camera 8-mm port was maintained along the epigastrium. Another 8 mm port was placed along the left upper abdominal wall after exchanging the 5 mm port. Please note that the ports were placed at least 10 to 15 cm away from the target anatomy of the gallbladder. Right inguinal hernia indirect was identified without incarceration. Left groin with features of inguinal hernia however secured by sigmoid colon. The robot was docked along the left lateral abdomen. The patient was repositioned in reverse Trendelenburg position. Using a grasper for arm 3, a grasper for arm 4, including hook cautery for arm 1, the robotic system was docked and primed as described. Instruments were interchanged by the clerical administrative assistant including hook cautery, Bovie cautery and clip appliers. I had sat at the console. The gallbladder was scarred with peritoneal adhesions. Lysis of adhesions using hook heartrate including vessel sealerwas performed to free the gallbladder from the surrounding tissues for over 30 minutes . Next attention was brought to the infundibulum and cystic structures. The infundibulum and cystic duct were dissected free from surrounding tissues. The cystic duct was isolated. FIREFLY was used to identify the cystic artery and cystic structures. A critical view of safety was obtained. Large PLASTIC clips were used throughout the entire case. Using a clip tribal judge, 2 clips were placed at the junction of the infundibulum and cystic duct. The cystic duct was divided between clips. Next, the cystic artery was similarly clipped and cauterized. Electro-Bovie cautery was used to remove the gallbladder from the hepatic fossa. Hemostasis was checked and found to be adequate. The robot was undocked. I re-scrubbed into the case. Using a 10 mm Endo Catch bag via the left upper quadrant incision, the specimen was removed from the abdominal cavity. All pneumoperitoneum instruments were evacuated from the abdominal cavity. The incisions were reapproximated using 4-0 Monocryl in an interrupted subcuticular fashion. Fascial defects were less than 8 mm in size. Please note along the trocar sites, local anesthetic was placed as a field block prior to insertion of all instruments. Liquid glue was applied to the skin. At the end of the procedure needle, sponge, and instrument count had been verified correct by the flight test data acquisition technician. The patient was transferred to postanesthesia care unit in stable condition. Intraoperative films were shared with the patient's family. Plan - Discharge Summary Discharge Rx Participant: No New Discharge Prescriptions: New Acetaminophen Tab [Tylenol Tab] 1,000 mg PO Q6HR PRN #30 tablet PRN Reason: Pain Simethicone [Gas-X] 125 mg PO AC-TID PRN #20 capsule PRN Reason: Pain Ibuprofen [Motrin] 600 mg PO Q8HR PRN #30 tab PRN Reason: Pain Continue HYDROcodone/APAP 10-325MG [[place] 10-325] 1 tab PO TID PRN PRN Reason: Pain lamoTRIgine [LaMICtal] 150 mg PO BID Atomoxetine HCl [Strattera] 100 mg PO QAM traZODone HCL 200 mg PO HS metFORMIN HCL [Glucophage] 500 mg PO DAILY Losartan Potassium [Cozaar] 100 mg PO DAILY OXcarbazepine [Trileptal] 150 mg PO HS Glimepiride [Amaryl] 4 mg PO DAILY Atorvastatin [Lipitor] 20 mg PO HS Loratadine [Claritin] 10 mg PO DAILY PRN PRN Reason: Allergy Symptoms hydroCHLOROthiazide [Hydrodiuril] 25 mg PO DAILY Empagliflozin [Jardiance] 25 mg PO AC-SUPPER Carvedilol [Coreg] 25 mg PO BID Cholecalciferol [Vitamin D3 (25 Mcg = 1000 Iu)] 500 unit PO DAILY Omeprazole [PriLOSEC] 40 mg PO DAILY #30 cap Venlafaxine HCl ER [Effexor XR] 150 mg PO DAILY Dicyclomine [Bentyl] 10 mg PO TID PRN PRN Reason: stomach pain Discharge Medication List Atomoxetine HCl [Strattera] 100 mg PO QAM 04/08/19 [History] Atorvastatin [Lipitor] 20 mg PO HS 04/08/19 [History] Carvedilol [Coreg] 25 mg PO BID 04/08/19 [History] Cholecalciferol [Vitamin D3 (25 Mcg = 1000 Iu)] 500 unit PO DAILY 04/08/19 [History] Empagliflozin [Jardiance] 25 mg PO AC-SUPPER 04/08/19 [History] Glimepiride [Amaryl] 4 mg PO DAILY 04/08/19 [History] HYDROcodone/APAP 10-325MG [[place] 10-325] 1 tab PO TID PRN 04/08/19 [History] Loratadine [Claritin] 10 mg PO DAILY PRN 04/08/19 [History] Losartan Potassium [Cozaar] 100 mg PO DAILY 04/08/19 [History] OXcarbazepine [Trileptal] 150 mg PO HS 04/08/19 [History] hydroCHLOROthiazide [Hydrodiuril] 25 mg PO DAILY 04/08/19 [History] lamoTRIgine [LaMICtal] 150 mg PO BID 04/08/19 [History] metFORMIN HCL [Glucophage] 500 mg PO DAILY 04/08/19 [History] traZODone HCL 200 mg PO HS 04/08/19 [History] Venlafaxine HCl ER [Effexor XR] 150 mg PO DAILY 10/14/20 [History] Omeprazole [PriLOSEC] 40 mg PO DAILY #30 cap 10/15/20 [Rx] Dicyclomine [Bentyl] 10 mg PO TID PRN 04/15/21 [History] Acetaminophen Tab [Tylenol Tab] 1,000 mg PO Q6HR PRN #30 tablet 04/16/21 [Rx] Ibuprofen [Motrin] 600 mg PO Q8HR PRN #30 tab 04/16/21 [Rx] Simethicone [Gas-X] 125 mg PO AC-TID PRN #20 capsule 04/16/21 [Rx] Follow up Appointment(s)/Referral(s): June Krishnamurthy MD [STAFF PHYSICIAN] - 04/20/21 Patient Instructions/Handouts: *[facility] - Managing Your Pain After Surgery Without Opioids, Low Fat Diet (DC), Laparoscopic Cholecystectomy (DC) Activity/Diet/Wound Care/Special Instructions: Recommend low-fat diet for the next 2 days. No lifting over 10 pounds in 2 weeks until Apr 30. May shower. No bath tub soaks for two weeks until Apr 30 Diet as tolerated. Use Tylenol, simethicone and ibuprofen or Aleve scheduled for the next 24-48 hours for best pain relief. Use ice along incisions for today to prevent swelling. Discharge Disposition: HOME SELF-CARE
--- NOTE | 2021-04-21 10:20 | P.PCN ---
Date of Procedure: 04/16/21 Description of Procedure: PREOPERATIVE DIAGNOSIS: Gastric ulcers Gastroesophageal reflux disease Epigastric abdominal pain POSTOPERATIVE DIAGNOSIS: Gastroesophageal reflux disease. OPERATION: Intraoperative esophagogastroduodenoscopy SURGEON: June Krishnamurthy MD ANESTHESIA: GETA. INDICATIONS: The patient is a 51-year-old male who presents with gastric ulcers status post treatment. Benefits and risks of the procedure were described. Informed consent was obtained. DESCRIPTION: After completion of his cholecystectomy, an Olympus gastroscope was passed along the posterior oropharynx down to the distal esophagus where the squamocolumnar junction was encountered at 38 cm from the incisors. The stomach was entered and no bile reflux was found. Additional findings are listed below. The first through third portion of the duodenum was examined and unremarkable. Retroflexion of the scope confirmed Hill grade 2 lower esophageal valve. The squamocolumnar junction demonstrated LA grade B erosive esophagitis. The stomach was desufflated. The patient tolerated the procedure well and was extubated. FINDINGS: Squamocolumnar junction 38 cm from the incisors. Diaphragmatic hiatus at 38 cm. Hill grade 2 lower esophageal valve. LA grade B erosive esophagitis. No active duodenitis. Resolved gastric ulcers RECOMMENDATIONS: Upper endoscopy as needed.
== END 2021-04-16 13:19 | disposition home or self-care (01) ==
LOC: OR 06:57
PROVIDERS: ATTEND Surgery Plastic and Reconstructive Surgery
DX: K81.1 Chronic cholecystitis (principal); K66.0 Peritoneal adhesions (postprocedural) (postinfection); I25.10 Atherosclerotic heart disease of native coronary artery without angina pectoris; I11.0 Hypertensive heart disease with heart failure; E11.9 Type 2 diabetes mellitus without complications; K21.9 Gastro-esophageal reflux disease without esophagitis; E78.5 Hyperlipidemia, unspecified; F41.1 Generalized anxiety disorder; F31.9 Bipolar disorder, unspecified; G89.4 Chronic pain syndrome; E66.09 Other obesity due to excess calories; Z68.30 Body mass index [BMI] 30.0-30.9, adult; G40.909 Epilepsy, unspecified, not intractable, without status epilepticus; F90.9 Attention-deficit hyperactivity disorder, unspecified type; Z97.2 Presence of dental prosthetic device (complete) (partial); Z98.890 Other specified postprocedural states; Z87.11 Personal history of peptic ulcer disease; Z87.891 Personal history of nicotine dependence; Z83.79 Family history of other diseases of the digestive system; Z79.84 Long term (current) use of oral hypoglycemic drugs; Z79.899 Other long term (current) drug therapy; Z88.8 Allergy status to other drugs, medicaments and biological substances
CPT/HCPCS: 88304; 80053; 85025; 47563; 43235; J2250; J1100; J2710; J0690; J2405; J2001; J3010; J1885; J2370; J0330; J2704; J1170; J1644

== ENCOUNTER 2022-06-04 23:00 | Emergency (ER) | payer MEDICARE, OTHER ==
[2022-06-04 23:14] VITALS: RESP 18; TEMP 97.9
--- NOTE | 2022-06-05 00:10 | CT ---
EXAMINATION TYPE: CT brain bassamine wo con DATE OF EXAM: 06/05/2022 COMPARISON: CT brain 10/08/2011 HISTORY: Fall CT DLP: 1604.4 mGycm Automated exposure control for dose reduction was used. Images of the brain and cervical spine obtained with no contrast. Ventricles have normal size. There is no mass effect or midline shift. No sign of intracranial hemorr zoila. The calvarium is intact. The skull base is intact. There is normal aeration of the mastoid sinu ses. The cervical vertebra have fairly normal spacing and alignment. Posterior elements are intact. No com pression fracture facet joints are intact. No focal bone destruction. Prevertebral soft tissues are i ntact. IMPRESSION: Negative CT scan of the brain and cervical spine. No evidence of traumatic injury.
--- NOTE | 2022-06-05 02:19 | ED ---
Fall HPI - General Chief Complaint: Fall Stated Complaint: ETOH Time Seen by Provider: 06/04/22 23:10 Source: patient, EMS Mode of arrival: EMS Limitations: altered mental status (Patient intoxicated) - History of Present Illness Initial Comments: This patient is a 52-year-old man brought to have evaluation after having a ground-level fall and striking head. Patient admits to drinking alcohol tonight. Patient also having some nausea and vomiting related to drinking. Patient denies significant headache. There is no reported loss consciousness. Patient denies change in vision, speech, hearing. Denies numbness or weakness MD Complaint: fall -: minutes(s) Fall From: standing When Fall Occurred: just prior to arrival Fall Witnessed: yes, by family Place Fall Occurred: other Loss of Consciousness: none Prolonged Down Time?: no Symptoms Prior to Fall: none Location: head Severity: mild Quality: dull Context: alcohol use - Related Data Home Medications Medication Instructions Recorded Confirmed Atomoxetine HCl [Strattera] 100 mg PO QAM 04/08/19 04/16/21 Atorvastatin [Lipitor] 20 mg PO HS 04/08/19 04/15/21 Cholecalciferol [Vitamin D3 (25 500 unit PO DAILY 04/08/19 04/16/21 Mcg = 1000 Iu)] Empagliflozin [Jardiance] 25 mg PO AC-SUPPER 04/08/19 04/16/21 Glimepiride [Amaryl] 4 mg PO DAILY 04/08/19 04/16/21 HYDROcodone/APAP 10-325MG [[place] 1 tab PO TID PRN 04/08/19 04/16/21 10-325] Loratadine [Claritin] 10 mg PO DAILY PRN 04/08/19 04/16/21 Losartan Potassium [Cozaar] 100 mg PO DAILY 04/08/19 04/15/21 OXcarbazepine [Trileptal] 150 mg PO HS 04/08/19 04/15/21 carvediloL [Coreg] 25 mg PO BID 04/08/19 04/15/21 hydroCHLOROthiazide [Hydrodiuril] 25 mg PO DAILY 04/08/19 04/15/21 lamoTRIgine [LaMICtal] 150 mg PO BID 04/08/19 04/15/21 metFORMIN HCL [Glucophage] 500 mg PO DAILY 04/08/19 04/15/21 traZODone HCL 200 mg PO HS 04/08/19 04/15/21 Venlafaxine HCl ER [Effexor XR] 150 mg PO DAILY 10/14/20 04/16/21 Dicyclomine [Bentyl] 10 mg PO TID PRN 04/15/21 04/15/21 Previous Rx's Medication Instructions Recorded Omeprazole [PriLOSEC] 40 mg PO DAILY #30 cap 10/15/20 Acetaminophen Tab [Tylenol Tab] 1,000 mg PO Q6HR PRN #30 tablet 04/16/21 Ibuprofen [Motrin] 600 mg PO Q8HR PRN #30 tab 04/16/21 Simethicone [Gas-X] 125 mg PO AC-TID PRN #20 capsule 04/16/21 Allergies Allergy/AdvReac Type Severity Reaction Status Date / Time aripiprazole [From Abilify] Allergy Severe Rash/Hives Verified 04/16/21 07:13 cyclobenzaprine Allergy Unknown Verified 04/16/21 07:13 [From Flexeril] Review of Systems ROS Statement: Those systems with pertinent positive or pertinent negative responses have been documented in the HPI. ROS Other: All systems not noted in ROS Statement are negative. Limitations: ROS unobtainable due to patients medical condition (Intoxicated) Constitutional: Denies: chills Eyes: Denies: vision change Respiratory: Denies: cough, dyspnea Cardiovascular: Denies: chest pain, syncope Gastrointestinal: Reports: vomiting. Denies: abdominal pain Genitourinary: Denies: dysuria Musculoskeletal: Denies: back pain Skin: Denies: rash Neurological: Reports: as per HPI. Denies: weakness, numbness Past Medical History Past Medical History: Coronary Artery Disease (CAD), Heart Failure, Diabetes Mellitus, GERD/Reflux, Musculoskeletal Disorder Additional Past Medical History / Comment(s): Hx back, knee pain. Stomach ulcer hx History of Any Multi-Drug Resistant Organisms: None Reported Past Surgical History: Tonsillectomy Additional Past Surgical History / Comment(s): trach placed and removed. colonoscopy. knee scope Past Anesthesia/Blood Transfusion Reactions: No Reported Reaction Past Psychological History: ADD/ADHD, Anxiety, Bipolar, Depression Smoking Status: Former smoker - Past Family History Mother Family Medical History: No Reported History General Exam Limitations: altered mental status General appearance: alert, appears intoxicated Head exam: Present: normocephalic, other (Forehead abrasion) Eye exam: Present: normal appearance, PERRL, EOMI, nystagmus. Absent: scleral icterus, conjunctival injection ENT exam: Present: normal oropharynx Neck exam: Present: normal inspection, other (Patient is in cervical collar) Respiratory exam: Present: normal lung sounds bilaterally. Absent: respiratory distress, wheezes, rales, rhonchi, stridor Cardiovascular Exam: Present: regular rate, normal rhythm, normal heart sounds. Absent: systolic murmur, diastolic murmur, rubs, gallop GI/Abdominal exam: Present: soft. Absent: distended, tenderness, guarding, rebound, rigid, mass Extremities exam: Present: normal inspection, normal capillary refill. Absent: pedal edema, calf tenderness Back exam: Present: normal inspection. Absent: CVA tenderness (R), CVA tenderness (L), vertebral tenderness Neurological exam: Present: alert, oriented X3, CN II-XII intact, other (Patient has some dysarthria and ataxia consistent with alcohol intoxication). Absent: motor sensory deficit Skin exam: Present: warm, dry, intact, normal color. Absent: rash Course Vital Signs 06/04/22 06/05/22 23:09 02:41 Temperature 97.9 F Pulse Rate 75 88 Respiratory 18 18 Rate Blood Pressure 116/86 110/69 O2 Sat by Pulse 96 95 Oximetry Medical Decision Making - Medical Decision Making Patient is 52-year-old man brought to have evaluation after he reportedly drank large amount of alcohol and had ground level fall striking head. I interpreted the computed tomography scan has not showing intracranial injury or skull fracture patient is observed here in the emergency department, and then guardian desired to pick the patient up, prior to being clinically sober. Patient not manifesting head injury signs or symptoms. Was pt. sent in by a medical professional or institution? @ no Did you speak to anyone other than the patient for history? @ EMS Did you review nursing and triage notes? @ -[agree Were old charts reviewed? @ -no Differential Diagnosis? @ - Differential diagnosis includes alcohol intoxication, head injury and other causes of ataxia and vomiting EKG interpreted by me (3pts min.)? @ -[no X-rays interpreted by me (1pt min.)? @ -no CT interpreted by me (1pt min.)? @ -yes U/S interpreted by me (1pt. min.)? @ -[none] What testing was considered but not performed? (CT, X-rays, U/S, labs)? Why? @ [ What meds were considered but not given? Why? @ -[none] Did you discuss the management of the patient with other professionals? @ -no Did you reconcile home meds? @ -[none] Was smoking cessation discussed for >3mins.? @ -[none] Was critical care preformed (if so, how long)? @ -[none] Were there social determinants of health that impacted care today? How? (Homelessness, low income, unemployed, alcoholism, drug addiction, transportation, low edu. Level, literacy, decrease access to med. care, longterm, rehab)? @ -[There is alcohol abuse suspected Was there de-escalation of care discussed even if they declined? (Discuss DNR or withdrawal of care, Hospice)? @ -[no What co-morbidities impacted this encounter? (DM, HTN, Smoking, COPD, CAD, Cancer, CVA, Hep., AIDS, mental health diagnosis, sleep apnea, morbid obesity)? @ -none Was patient admitted / discharged? @Discharged Undiagnosed new problem with uncertain prognosis? @ -[none] Drug Therapy requiring intensive monitoring for toxicity (Heparin, Nitro, Insulin, Cardizem)? @ -[none] Were any procedures done? @ -[none] Diagnosis/symptom? @ -Alcohol intoxication Acute, or Chronic, or Acute on Chronic? @ -[Acute Uncomplicated (without systemic symptoms) or Complicated (systemic symptoms)? @ -[Uncomplicated Side effects of treatment? @ -[none] Exacerbation, Progression, or Severe Exacerbation] @ -[no] Poses a threat to life or bodily function? @ -[no] Disposition Clinical Impression: Fall, Alcohol intoxication Disposition: HOME SELF-CARE Condition: Good Instructions (If sedation given, give patient instructions): Alcohol Into xication (DC) Is patient prescribed a controlled substance at d/c from ED?: No Referrals: None,Stated [Primary Care Provider] - 1-2 days
[2022-06-05 02:42] VITALS: BP 110/69; PULSE 88
== END 2022-06-05 02:46 | disposition home or self-care (01) ==
LOC: EC 23:00
DX: F10.929 Alcohol use, unspecified with intoxication, unspecified (principal); I25.10 Atherosclerotic heart disease of native coronary artery without angina pectoris; K21.9 Gastro-esophageal reflux disease without esophagitis; I50.9 Heart failure, unspecified; E11.9 Type 2 diabetes mellitus without complications; F31.9 Bipolar disorder, unspecified; F41.9 Anxiety disorder, unspecified; Z88.8 Allergy status to other drugs, medicaments and biological substances; Z79.84 Long term (current) use of oral hypoglycemic drugs; Z79.899 Other long term (current) drug therapy; Z87.891 Personal history of nicotine dependence; W01.198A Fall on same level from slipping, tripping and stumbling with subsequent striking against other object, initial encounter
CPT/HCPCS: 70450; 72125; 99284

== ENCOUNTER 2023-08-18 00:50 | Inpatient (IN) | payer MEDICARE, OTHER ==
[2023-08-18] MEDS: HYDROmorphone 1 MG/ML 1 ML SYRINGE IM STA (02:03)
--- NOTE | 2023-08-18 02:05 | XR ---
EXAMINATION TYPE: XR chest 1V DATE OF EXAM: 08/18/2023 COMPARISON: Prior chest x-ray April 14, 2012 HISTORY: Fall TECHNIQUE: 2 frontal views of the chest are obtained. FINDINGS: There is no suspicious new focal air space opacity, pleural effusion, or pneumothorax seen . The cardiac silhouette size is mildly enlarged. The osseous structures are intact. IMPRESSION: Mild cardiomegaly without acute pulmonary process.
--- NOTE | 2023-08-18 02:06 | XR ---
EXAMINATION TYPE: XR tibia fibula LT DATE OF EXAM: 08/18/2023 CLINICAL HISTORY: Fall with pain TECHNIQUE: Two views of the left leg are obtained. COMPARISON: None. FINDINGS: Slightly suboptimal due to some obliquity in the frontal projection. There is no acute dis placed fracture seen in the left tibia or fibula. The left knee and ankle joints appear within bob l limits. The overlying soft tissue appears unremarkable. IMPRESSION: There is no acute displaced fracture seen in the tibia or fibula.
--- NOTE | 2023-08-18 02:11 | XR ---
EXAMINATION TYPE: XR pelvis AP view, XR femur LT DATE OF EXAM: 08/18/2023 CLINICAL HISTORY: Pelvic and right left femur pain after fall injury. TECHNIQUE: A single AP view of the pelvis is obtained. Two views of the left femur are obtained. COMPARISON: None. FINDINGS: There is acute displaced impacted fracture through the transcervical region of the femoral neck of th e left proximal femur. No additional acute displaced fracture in the pelvis or distal femur. No hip j oint dislocation. Asymmetric right-sided narrowing is present. Pubic symphysis is intact. Overlying s oft tissue is unremarkable. IMPRESSION: There is acute displaced impacted fracture through the transcervical region of the femor al neck of the left proximal femur.
--- NOTE | 2023-08-18 02:37 | ED ---
Fall HPI - General Chief Complaint: Fall Stated Complaint: fall, leg injury Time Seen by Provider: 08/18/23 01:07 Source: patient Mode of arrival: ambulatory - History of Present Illness Initial Comments: 53-year-old male presents to the ED status post mechanical fall where he slipped off his porch injuring his left leg. There is no head injury at this time. Patient not on blood thinners. No other injuries at this time. No other complaints. - Related Data Home Medications Medication Instructions Recorded Confirmed Atomoxetine HCl [Strattera] 100 mg PO QAM 04/08/19 04/16/21 Atorvastatin [Lipitor] 20 mg PO HS 04/08/19 04/15/21 Cholecalciferol [Vitamin D3 (25 500 unit PO DAILY 04/08/19 04/16/21 Mcg = 1000 Iu)] Empagliflozin [Jardiance] 25 mg PO AC-SUPPER 04/08/19 04/16/21 Glimepiride [Amaryl] 4 mg PO DAILY 04/08/19 04/16/21 HYDROcodone/APAP 10-325MG [[place] 1 tab PO TID PRN 04/08/19 04/16/21 10-325] Loratadine [Claritin] 10 mg PO DAILY PRN 04/08/19 04/16/21 Losartan Potassium [Cozaar] 100 mg PO DAILY 04/08/19 04/15/21 OXcarbazepine [Trileptal] 150 mg PO HS 04/08/19 04/15/21 carvediloL [Coreg] 25 mg PO BID 04/08/19 04/15/21 hydroCHLOROthiazide [Hydrodiuril] 25 mg PO DAILY 04/08/19 04/15/21 lamoTRIgine [LaMICtal] 150 mg PO BID 04/08/19 04/15/21 metFORMIN HCL [Glucophage] 500 mg PO DAILY 04/08/19 04/15/21 traZODone HCL 200 mg PO HS 04/08/19 04/15/21 Venlafaxine HCl ER [Effexor XR] 150 mg PO DAILY 10/14/20 04/16/21 Dicyclomine [Bentyl] 10 mg PO TID PRN 04/15/21 04/15/21 Previous Rx's Medication Instructions Recorded Omeprazole [PriLOSEC] 40 mg PO DAILY #30 cap 10/15/20 Acetaminophen Tab [Tylenol Tab] 1,000 mg PO Q6HR PRN #30 tablet 04/16/21 Ibuprofen [Motrin] 600 mg PO Q8HR PRN #30 tab 04/16/21 Simethicone [Gas-X] 125 mg PO AC-TID PRN #20 capsule 04/16/21 Allergies Allergy/AdvReac Type Severity Reaction Status Date / Time aripiprazole [From Abilify] Allergy Severe Rash/Hives Verified 08/18/23 00:54 cyclobenzaprine Allergy Unknown Verified 08/18/23 00:54 [From Flexeril] Review of Systems ROS Statement: Those systems with pertinent positive or pertinent negative responses have been documented in the HPI. ROS Other: All systems not noted in ROS Statement are negative. Past Medical History Past Medical History: Coronary Artery Disease (CAD), Heart Failure, Diabetes Mellitus, GERD/Reflux, Musculoskeletal Disorder Additional Past Medical History / Comment(s): Hx back, knee pain. Stomach ulcer hx History of Any Multi-Drug Resistant Organisms: None Reported Past Surgical History: Tonsillectomy Additional Past Surgical History / Comment(s): trach placed and removed. colonoscopy. knee scope Past Anesthesia/Blood Transfusion Reactions: No Reported Reaction Past Psychological History: ADD/ADHD, Anxiety, Bipolar, Depression Smoking Status: Former smoker - Past Family History Mother Family Medical History: No Reported History General Exam Limitations: no limitations General appearance: alert, in no apparent distress Head exam: Present: atraumatic, normocephalic, other (No henry signs or raccoon's eyes) Eye exam: Present: normal appearance Neck exam: Present: normal inspection Respiratory exam: Present: normal lung sounds bilaterally Cardiovascular Exam: Present: regular rate GI/Abdominal exam: Present: soft Extremities exam: Present: other (There is some rotation of the left lower extremity. Strength and sensation distal intact. DP/PT pulses in tact. Tenderness to palpation of the proximal left femur.) Neurological exam: Present: alert, oriented X3 Skin exam: Present: warm, dry Course Vital Signs 08/18/23 00:51 Temperature 98.6 F Pulse Rate 77 Respiratory 22 Rate Blood Pressure 137/80 O2 Sat by Pulse 97 Oximetry Medical Decision Making - Medical Decision Making Was pt. sent in by a medical professional or institution (, PA, POLYETHYLENE BAG MACHINE OPERATOR, urgent care, hospital, or alf...) When possible be specific @ -No Did you speak to anyone other than the patient for history (EMS, parent, family, police, friend...)? What history was obtained from this source @ -No Did you review nursing and triage notes (agree or disagree)? Why? @ -I reviewed and agree with nursing and triage notes Were old charts reviewed (outside hosp., previous admission, EMS record, old EKG, old radiological studies, urgent care reports/EKG's, alf records)? Report findings @ -No old charts were reviewed Differential Diagnosis (chest pain, altered mental status, abdominal pain women, abdominal pain men, vaginal bleeding, weakness, fever, dyspnea, syncope, headache, dizziness, GI bleed, back pain, seizure, CVA, palpatations, mental health, musculoskeletal)? @ -Differential Musculoskeletal Muscular strain, contusion, ligament sprain, fracture, arthritis, septic arthritis, bursitis, cellulitis, muscle spasm, nerve compression, DVT, arterial occlusion, herpes zoster, electrolyte abnormality, tumor.... This is not meant to be in all inclusive list EKG interpreted by me (3pts min.). @ -None X-rays interpreted by me (1pt min.). @ -X ray of the hip and femur interpreted by me showing acute displaced impacted fracture through the transcervical region of the femoral neck of the left proximal femur. X-ray of the tibia and fibula interpreted me revealed no evidence of acute finding. Chest x-ray interpreted by me revealing no evidence of acute finding. CT interpreted by me (1pt min.). @ -None done U/S interpreted by me (1pt. min.). @ -None done What testing was considered but not performed or refused? (CT, X-rays, U/S, labs)? Why? @ -None What meds were considered but not given or refused? Why? @ -None Did you discuss the management of the patient with other professionals (professionals i.e. , PA, POLYETHYLENE BAG MACHINE OPERATOR, lab, RT, psych nurse, social science manager, cutting machine operator, teacher, sustainability officer, esthetician and manager medical spa)? Give summary @ -Case discussed with Caro Ron NP [facility], who accepts admissions for orthopedics. Request consult to medicine for surgical clearance. Was smoking cessation discussed for >3mins.? @ -No Was critical care preformed (if so, how long)? @ -No Were there social determinants of health that impacted care today? How? (Homelessness, low income, unemployed, alcoholism, drug addiction, transportation, low edu. Level, literacy, decrease access to med. care, care home, rehab)? @ -No Was there de-escalation of care discussed even if they declined (Discuss DNR or withdrawal of care, Hospice)? DNR status @ -No What co-morbidities impacted this encounter? (DM, HTN, Smoking, COPD, CAD, Cancer, CVA, ARF, Chemo, Hep., AIDS, mental health diagnosis, sleep apnea, morbid obesity)? @ -Diabetes, hyperlipidemia Was patient admitted / discharged? Hospital course, mention meds given and route, prescriptions, significant lab abnormalities, going to OR and other pertinent info. @ -Admission 53-year-old male presents to the ED status post mechanical fall with left leg injury. There does appear to be some rotation of his left lower extremity on exam. Distal strength and sensation intact. Patient not on blood thinners. X- ray is significant for an acute displaced impacted fracture through the transcervical region of the femoral neck of the left proximal femur. Patient will be admitted under orthopedics with consult to medicine for surgical clearance. Undiagnosed new problem with uncertain prognosis? @ -No Drug Therapy requiring intensive monitoring for toxicity (Heparin, Nitro, Insulin, Cardizem)? @ -No Were any procedures done? @ -No Diagnosis/symptom? @ -Left hip fracture Acute, or Chronic, or Acute on Chronic? @ -Acute Uncomplicated (without systemic symptoms) or Complicated (systemic symptoms)? @ -Uncomplicated Side effects of treatment? @ -No Exacerbation, Progression, or Severe Exacerbation? @ -No Poses a threat to life or bodily function? How? (Chest pain, [place], SD, pneumonia, PE, COPD, DKA, ARF, appy, cholecystitis, CVA, Diverticulitis, Homicidal, Suicidal, threat to staff... and all critical care pts) @ -Unlikely Disposition Clinical Impression: Hip fracture, left Disposition: ADMITTED IP TO THIS [facility] Condition: Good Referrals: Emanuel Rankin DO [Primary Care Provider] - 1-2 days Time of Disposition: 02:30
[2023-08-18] MEDS ORDERED: NALOXONE 0.4 MG/ML 1 ML VIAL IV PRN (02:44)
[2023-08-18] MEDS: ACETAMINOPHEN TAB 500 MG TAB PO STA (03:01)
[2023-08-18] MEDS: SODIUM CHLORIDE 0.9% 1,000 ML IV SCH (03:16)
[2023-08-18] MEDS: HYDROmorphone 1 MG/ML 1 ML SYRINGE IVP PRN (04:11)
[2023-08-18 08:01] LABS: Glucose,Whole Blood 113 mg/dL (70-110)
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
[2023-08-18] MEDS ORDERED: DEXTROSE 50% SYRINGE 50 ML IVP PRN ×2 (10:22)
[2023-08-18] MEDS: carvediloL 12.5 MG TAB PO SCH (10:33)
[2023-08-18] MEDS: HYDROcodone/APAP 5-325MG 1 EACH TAB PO PRN (11:28)
[2023-08-18 11:31] LABS: ALT 62 U/L (4-49); AST 54 U/L (17-59); African American GFR (CKD) >90 (>60 ml/min/1.73 sqM); Albumin 4.3 g/dL (3.5-5.0); Albumin/Globulin Ratio 1.4; Alkaline Phosphatase 64 U/L (38-126); Anion Gap 11 mmol/L; Blood Urea Nitrogen 17 mg/dL (9-20); Carbon Dioxide 27 mmol/L (22-30); Chloride 101 mmol/L (98-107); Glucose 212 mg/dL (74-99); Non-African American GFR(CKD) >90 (>60 ml/min/1.73 sqM); Potassium 4.1 mmol/L (3.5-5.1); Sodium 139 mmol/L (137-145); Total Bilirubin 0.5 mg/dL (0.2-1.3); Total Protein 7.3 g/dL (6.3-8.2)
[2023-08-18 11:39] LABS: Basophils # (A) 0.1 k/uL (0-0.2); Basophils % (A) 1 %; Eosinophils # (A) 0.2 k/uL (0-0.7); Eosinophils % (A) 1 %; HCT 45.1 % (39.0-53.0); HGB 14.6 gm/dL (13.0-17.5); Lymphocytes # (A) 2.5 k/uL (1.0-4.8); Lymphocytes % (A) 22 %; MCH 26.8 pg (25.0-35.0); MCHC 32.4 g/dL (31.0-37.0); MCV 82.8 fL (80.0-100.0); Mean Platelet Volume 8.2; Monocytes # (A) 0.7 k/uL (0-1.0); Monocytes % (A) 6 %; Neutrophils # (A) 8.1 k/uL (1.3-7.7); Neutrophils % (A) 69 %; Platelet Count 158 k/uL (150-450); RBC 5.45 m/uL (4.30-5.90); RDW 13.2 % (11.5-15.5); WBC 11.6 k/uL (3.8-10.6)
[2023-08-18 11:52] LABS: Glucose,Whole Blood 181 mg/dL (70-110)
[2023-08-18] MEDS: INSULIN ASPART (NovoLOG) 100 UNIT/ML VIAL SQ SCH (12:43)
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
[2023-08-18 17:03] LABS: Glucose,Whole Blood 192 mg/dL (70-110)
[2023-08-18 17:23] LABS: Prothrombin Time 11.1 sec (10.0-12.5)
[2023-08-18] MEDS: HYDROcodone/APAP 10-325MG 1 EACH TAB PO PRN (17:40)
[2023-08-18] MEDS: ATORVASTATIN 20 MG TAB PO SCH (20:14)
[2023-08-18] MEDS: traZODone HCL 100 MG TAB PO SCH (20:14)
[2023-08-18] MEDS: lamoTRIgine 100 MG TAB PO SCH (20:14)
[2023-08-18] MEDS: OXcarbazepine 150 MG TAB PO SCH (20:14)
[2023-08-18 20:50] LABS: Glucose,Whole Blood 153 mg/dL (70-110)
[2023-08-19 05:55] LABS: Glucose,Whole Blood 139 mg/dL (70-110)
[2023-08-19] MEDS: LACTATED RINGERS 1,000 ML IV ONE ×2 (07:16→10:28)
[2023-08-19] MEDS ORDERED: fentaNYL (PF) 50 MCG/ML 2 ML AMP ONE (07:36)
[2023-08-19] MEDS ORDERED: MIDAZOLAM 2 MG/2 ML VIAL ONE (07:36)
[2023-08-19] MEDS ORDERED: PROPOFOL 10 MG/ML 20 ML VIAL IV ONE (07:36)
[2023-08-19] MEDS ORDERED: KETAMINE HCL IN 0.9 % NACL 50 MG/5 ML SYRINGE ONE (07:36)
[2023-08-19] MEDS ORDERED: ceFAZolin 1 GM/50 ML BAG (PMX) ONE (07:36)
[2023-08-19] MEDS ORDERED: PHENYLEPHRINE-0.9% NACL SYG 1,000 MCG/10 ML SYRINGE ONE (07:36)
[2023-08-19] MEDS: SODIUM CHLORIDE 0.9% 100 ML with ceFAZolin 2,000 MG IV ONE (07:42)
[2023-08-19 07:46] LABS: Basophils % (A) 0 %; Eosinophils # (A) 0.3 k/uL (0-0.7); Eosinophils % (A) 3 %; HCT 43.4 % (39.0-53.0); HGB 14.2 gm/dL (13.0-17.5); Lymphocytes # (A) 2.2 k/uL (1.0-4.8); Lymphocytes % (A) 20 %; MCHC 32.8 g/dL (31.0-37.0); MCV 82.3 fL (80.0-100.0); Mean Platelet Volume 7.8; Monocytes # (A) 0.6 k/uL (0-1.0); Monocytes % (A) 6 %; Neutrophils # (A) 7.6 k/uL (1.3-7.7); Neutrophils % (A) 70 %; Platelet Count 150 k/uL (150-450); RBC 5.27 m/uL (4.30-5.90); RDW 13.3 % (11.5-15.5); WBC 10.9 k/uL (3.8-10.6)
[2023-08-19 08:57] LABS: ALT 57 U/L (4-49); AST 42 U/L (17-59); African American GFR (CKD) >90 (>60 ml/min/1.73 sqM); Albumin 4.1 g/dL (3.5-5.0); Albumin/Globulin Ratio 1.4; Alkaline Phosphatase 71 U/L (38-126); Anion Gap 5 mmol/L; Blood Urea Nitrogen 12 mg/dL (9-20); Calcium 8.5 mg/dL (8.4-10.2); Carbon Dioxide 30 mmol/L (22-30); Chloride 101 mmol/L (98-107); Glucose 133 mg/dL (74-99); Non-African American GFR(CKD) >90 (>60 ml/min/1.73 sqM); Potassium 3.9 mmol/L (3.5-5.1); Sodium 136 mmol/L (137-145); Total Protein 7.1 g/dL (6.3-8.2)
[2023-08-19] MEDS ORDERED: MAGNESIUM HYDROXIDE 2,400 MG/30 ML CUP PO PRN (09:25)
[2023-08-19] MEDS ORDERED: NALOXONE 0.4 MG/ML 1 ML VIAL IV PRN (09:25)
[2023-08-19] MEDS ORDERED: ONDANSETRON 4 MG/2 ML VIAL IVP PRN (09:25)
--- NOTE | 2023-08-19 09:53 | P.OP ---
Date of Procedure: 08/19/23 Preoperative Diagnosis: Displaced left subcapital femoral neck fracture Postoperative Diagnosis: Same Procedure(s) Performed: Left total hip arthroplastypress-fitanterior approach Implants: Depuy Corail size 12/135/collared press-fit femoral stem, 36+1.5 cobalt chrome femoral head, 54 mm [place] acetabular shell with neutral polyethylene liner. Anesthesia: spinal Surgeon: Juan Carlos Hernandez [employer] Lab Manager #1: Caro Ron Estimated Blood Loss (ml): 200 Pathology: none sent Condition: stable Disposition: PACU Indications for Procedure: The patient is a 53-year-old male who presents after falling yesterday with a displaced left subcapital femoral neck fracture. A discussion of the risks and benefits of operative intervention was made with patient and his guardians. They opted to proceed with surgery. Operative options were discussed including hemiarthroplasty, closed reduction and pinning, and total hip arthroplasty. With the degree of initial displacement, it was elected to proceed with total hip arthroplasty. Specific risks of surgery to include infection, neurovascular injury, development of blood clots, possible ligament discrepancy, possible instability, possible component loosening/failure and possible need for subsequent procedures was discussed. Informed consent was obtained.. Operative Findings: As below Description of Procedure: The patient was brought to the operating room, and after induction of spinal anesthesia was placed supine on the Katrin table. Positioning was checked with fluoroscopy. The left hip was then prepped and draped in a normal fashion. A 12 cm incision was then made starting 2 fingerbreadths distal and 3 finger breaths posterior to the ASIS in line with the proximal femur. The skin was incised sharply. Subcutaneous tissues were divided sharply. Electrocautery was used for hemostasis. The fascia was split in line with skin incision. The interval between the sartorius and tensor fascia joyce was then bluntly developed. The posterior fascia was opened with electrocautery. The lateral circumflex vessels were identified and cauterized prior to sectioning. A retractor was placed along the superior femoral neck as well as the anterior acetabular rim. A wide capsulotomy was performed. The femoral neck fracture was identified. The head was extracted. Attention was then paid towards preparing the acetabular. Anterior and posterior retractors were placed. The remaining capsular labral tissue sharply debrided clearly defining the acetabular margins. I began reaming with a 49 mm reamer taking care to initially medialize then reaming at 45 of abduction and 20 of anteversion. Sequential reaming is performed up to 53 mm. A trial 54 mm acetabular shell was inserted in the same orientation and was fully seated. There was good rim fit and stability. Positioning was checked with fluoroscopy. The final 54 mm acetabular shell was inserted again at 45 of abduction and 20 of ante version. This was fully seated. There was good rim fit and stability. Again fluoroscopy was used to check the adequacy of placement. A neutral polyethylene liner was gently impacted. Care was taken to avoid any soft tissue interposition. Pulsatile lavage was utilized. Attention was then paid towards preparing the proximal femur. The central region was cleared of soft tissue. A canal finder was used to find the femoral canal. Sequential broaching was performed up to size 12 taking care to lateralize proximally. A calcar mill was used to fashion the medial calcar. There was good rotational stability. A standard neck along with a 36 mm +1.5 head was placed. The hip was gently reduced. Fluoroscopy was used to check the adequacy of positioning along with leg lengths. I felt both were good. The hip was gently dislocated. The trial components were removed. The final size 12 collared standard press-fit femoral stem was inserted parallel to the posterior cortex. This was fully seated and there was good rotational stability. A 36 mm + 1.5 head was placed. This was gently impacted. The hip was then gently reduced. Final fluoroscopic view showed adequate placement implant along with yazdanism of leg length. Stability was checked with 80 of external rotation and 60 of extension of the right hip. The wound was irrigated with sterile lavage. The fascia was cl osed with running 0 Vicryl suture. There was minimal drainage therefore a deep drain was not placed. The second dose of IV TXA was given. The subcutaneous tissues were reapproximated interrupted 2-0 Vicryl sutures. The skin was reapproximated with 3-0 subcuticular strata fix suture. Skin tape and adhesive was applied. A sterile dressing was applied. The patient was then awoken from sedation and transferred to recovery room in good condition. Blood loss was estimated at 200 mL. No complications were incurred. Sponge and needle counts were correct at the end of the case. Rubina MORAES assisted during the major components is case to include exposure, bone resection, implantation, and closure.
--- NOTE | 2023-08-19 09:56 | FL ---
EXAMINATION TYPE: FL guidance operating room, XR Hip Limited LT Intraoperative/procedural fluoroscopi c services were provided. Total fluoroscopy time is 18 seconds with a total of 6 submitted images to PACS. Please see the operative/procedural note for further details. DAP: [id number] mGym2
[2023-08-19 09:57] LABS: Glucose,Whole Blood 143 mg/dL (70-110)
[2023-08-19] MEDS: HYDROmorphone 0.5 MG/0.5 ML SYRINGE IVP ONE ×2 (10:13→10:22)
[2023-08-19] MEDS: ASCORBIC ACID 500 MG TAB PO SCH (10:42)
[2023-08-19] MEDS: GLIMEPIRIDE 4 MG TAB PO SCH (10:42)
[2023-08-19] MEDS: DAPAGLIFLOZIN PROPANEDIOL 10 MG TABLET PO SCH (10:42)
[2023-08-19] MEDS: CHOLECALCIFEROL 25 MCG (1000 IU) TABLET PO SCH (10:42)
[2023-08-19] MEDS: VENLAFAXINE HCL ER 150 MG CAP PO SCH (10:42)
[2023-08-19] MEDS: LACTATED RINGERS 1,000 ML IV SCH (11:39)
[2023-08-19 11:54] LABS: Glucose,Whole Blood 181 mg/dL (70-110)
--- NOTE | 2023-08-19 13:30 | XR ---
EXAMINATION TYPE: XR Hip Limited LT DATE OF EXAM: 08/19/2023 10:00 AM CLINICAL INDICATION:Male, 53 years old with history of postop left hip; [facility] COMPARISON: 08/18/2023. TECHNIQUE: XR Hip Limited LT; hip was examined in the frontal projections FINDINGS: Post arthroplasty changes, hardware is intact, alignment is appropriate. No evidence of fra cture. Postoperative changes of the soft tissues with subcutaneous gas. No evidence of any acute osse ous pathology or joint dislocation. IMPRESSION: Hip arthroplasty with hardware intact and in appropriate alignment. No acute fracture.
--- NOTE | 2023-08-19 14:29 | P.PN ---
Subjective Progress Note Date: 08/19/23 * 53-year-old gentleman past medical history significant for coronary artery disease, hypertension, hyperlipidemia, diabetes mellitus presented to ER because of fall. Patient stated he was all right this morning and while ambulating in his porch he missed a step and landed on his left side. There was no complete loss of consciousness. There was no complaint of lightheadedness or dizziness. Patient denied any jerking movement of any extremity. She started complaining of pain in his left hip. Because of the left hip pain, patient was brought to the ER. * EKG done in the ER showed heart rate of 78, no ST segment elevation or depression seen, no T-wave inversions seen. * Chest x-ray done in the ER showed cardiomegaly without acute pulmonary process * X-ray tibia-fibula left showed no acute displaced fracture of the tibia or fibula * X-ray femur and pelvis done showed acute displaced impacted fracture throughout the transverse cervical region of the femoral neck of the left proximal femur * 08/19/23: Patient seen and evaluated postprocedure, mother at bedside, patient states pain is under control, we will follow-up on electrolyte panel and CBC. Denies of any acute issues PHYSICAL EXAMINATION: GENERAL: The patient is alert and oriented x3, HEENT: Pupils are round and equally reacting to light. EOMI. No scleral icterus. CARDIOVASCULAR: S1 and S2 present. No murmurs, rubs, or gallops. PULMONARY: Chest is clear to auscultation, no wheezing or crackles. ABDOMEN: Soft, nontender, nondistended, normoactive bowel sounds. No palpable organomegaly. MUSCULOSKELETAL: S/p left hip surgery EXTREMITIES: No cyanosis, clubbing, or pedal edema. Left hip tenderness NEUROLOGICAL: Gross neurological examination did not reveal any focal deficits. SKIN: No rashes. Assessment and plan * Fall with trauma * Left impacted femoral neck fracture s/p left total hip arthroplasty less fate anterior approach postoperative day * Hypertension * Hyperlipidemia * Ilu-nnvlwna-tzdjgwzuk diabetes mellitus * Orthopedics on board, planning surgery . Orthopedic team primary * In regards to diabetes mellitus continue Accu-Cheks ACHS continue correctional insulin, continue glimepiride * Regards to postoperative DVT prophylaxis patient on Xarelto, monitor CBC * Regards to history of hypertension continue Coreg, Cozaar on hold to prevent hypotension Objective - Vital Signs Vital signs: Vital Signs Temp 97.8 F 08/19/23 09:44 Pulse 85 08/19/23 10:44 Resp 16 08/19/23 10:44 BP 111/77 08/19/23 10:44 Pulse Ox 95 08/19/23 10:44 FiO2 Intake & Output 08/18/23 08/19/23 08/19/23 18:59 06:59 18:59 Intake Total 250 800 Output Total 575 1200 350 Balance -325 -1200 450 Weight 86.183 kg Intake: IV 800 Oral 250 Output: Urine 575 1200 150 Estimated Blood Loss 200 Other: Voiding Method Indwelling Catheter # Voids 2 - Labs CBC & Chem 7: 08/19/23 07:05 08/19/23 07:05 Labs: Abnormal Lab Results - Last 24 Hours (Table) 08/18/23 08/18/23 08/18/23 Range/Units 10:54 10:54 11:50 WBC 11.6 H (3.8-10.6) k/uL Neutrophils # 8.1 H (1.3-7.7) k/uL Sodium (137-145) mmol/L Creatinine (0.66-1.25) mg/dL Glucose 212 H (74-99) mg/dL POC Glucose (mg/dL) 181 H (70-110) mg/dL ALT 62 H (4-49) U/L 08/18/23 08/18/23 08/19/23 Range/Units 17:02 20:48 05:53 WBC (3.8-10.6) k/uL Neutrophils # (1.3-7.7) k/uL Sodium (137-145) mmol/L Creatinine (0.66-1.25) mg/dL Glucose (74-99) mg/dL POC Glucose (mg/dL) 192 H 153 H 139 H (70-110) mg/dL ALT (4-49) U/L 08/19/23 08/19/23 08/19/23 Range/Units 07:05 07:05 09:56 WBC 10.9 H (3.8-10.6) k/uL Neutrophils # (1.3-7.7) k/uL Sodium 136 L (137-145) mmol/L Creatinine 0.61 L (0.66-1.25) mg/dL Glucose 133 H (74-99) mg/dL POC Glucose (mg/dL) 143 H (70-110) mg/dL ALT 57 H (4-49) U/L
[2023-08-19 17:00] LABS: Glucose,Whole Blood 203 mg/dL (70-110)
[2023-08-19] MEDS: SENNOSIDES-DOCUSATE SODIUM 1 EACH TAB PO SCH (20:57)
[2023-08-19 20:58] LABS: Glucose,Whole Blood 176 mg/dL (70-110)
[2023-08-19] MEDS: hydrOXYzine pamoate 25 MG CAP PO PRN (20:59)
[2023-08-20 06:12] LABS: Glucose,Whole Blood 174 mg/dL (70-110)
[2023-08-20] MEDS ORDERED: HYDROmorphone 0.5 MG/0.5 ML SYRINGE IVP PRN (07:00)
--- NOTE | 2023-08-20 07:28 | P.PN ---
Subjective Progress Note Date: 08/20/23 Principal diagnosis: Fall with trauma Patient seen and examined this morning. Patient is resting comfortable in bed. Surgical incision to the anterior right hip, clean dry and intact. Patient has not been out of bed since procedure. He is looking forward to working with physical therapy to get up and about. Jarquin catheter is to be discontinued this morning. Patient states his pain has been managed on current regimen. Continue to encourage patient to use incentive spirometer. No acute concerns. Objective - Vital Signs Vital signs: Vital Signs Temp 98.4 F 08/20/23 02:43 Pulse 76 08/20/23 02:43 Resp 18 08/20/23 02:43 BP 118/77 08/20/23 02:43 Pulse Ox 94 L 08/20/23 02:43 FiO2 Intake & Output 08/19/23 08/19/23 08/20/23 06:59 18:59 06:59 Intake Total 950 Output Total 1200 1250 1200 Balance -1200 -300 -1200 Intake: IV 950 Output: Urine 1200 1050 1200 Estimated Blood Loss 200 Other: Voiding Method Indwelling Catheter Indwelling Catheter Indwelling Catheter - Exam Inspection: Negative for any open fractures, ecchymosis, significant erythema/ulcers. Surgical incision into the anterior right hip, dressing is clean dry and intact. Sensation: Sensation is equal, symmetric, bilaterally intact throughout the upper and lower extremities Palpation: Nontender to palpation throughout bilateral upper and right lower extremities and throughout spine exam. Tenderness to palpation over the left hip Range of motion: Patient does have full range of motion bilateral upper and right lower extremities on exam. Limited range of motion due to fracture and pain. Motor: 5/5 in all major motor groups in the bilateral upper and right lower extremities. 4-/5 left lower extremity Special tests: Logroll maneuver of the left lower extremity produces pain. Neurovascular: Radial pulse intact, 2+ bilaterally. Cap refill under 3 seconds in digits upper extremities. - Labs CBC & Chem 7: 08/19/23 07:05 08/19/23 07:05 Labs: Abnormal Lab Results - Last 24 Hours (Table) 08/19/23 08/19/23 08/19/23 Range/Units 07:05 07:05 07:05 WBC 10.9 H (3.8-10.6) k/uL Sodium 136 L (137-145) mmol/L Creatinine 0.61 L (0.66-1.25) mg/dL Glucose 133 H (74-99) mg/dL POC Glucose (mg/dL) (70-110) mg/dL Hemoglobin A1c 8.2 H (<=6.0) % ALT 57 H (4-49) U/L 08/19/23 08/19/23 08/19/23 Range/Units 09:56 11:50 16:59 WBC (3.8-10.6) k/uL Sodium (137-145) mmol/L Creatinine (0.66-1.25) mg/dL Glucose (74-99) mg/dL POC Glucose (mg/dL) 143 H 181 H 203 H (70-110) mg/dL Hemoglobin A1c (<=6.0) % ALT (4-49) U/L 08/19/23 08/20/23 Range/Units 20:52 06:09 WBC (3.8-10.6) k/uL Sodium (137-145) mmol/L Creatinine (0.66-1.25) mg/dL Glucose (74-99) mg/dL POC Glucose (mg/dL) 176 H 174 H (70-110) mg/dL Hemoglobin A1c (<=6.0) % ALT (4-49) U/L Assessment and Plan Assessment: Post op Day 1: Left total hip arthroplasty Fall with trauma Left impacted femoral neck fracture Multiple comorbidities Plan: -Appreciate [employer] consultant and team management. -Activity: Ambulate QID, OOB all meals, up and about, Use walker or cane if needed for stability. -Daily PT/OT, increase ambulation strength and balance. -Pain control: Adequate at this time -Meds: reviewed -GI ppx: senna, Miralax -DC jarquin when up and about, bedside commode if needed -DVT PPX: Xarelto -Hygiene: Maintain dressing clean and dry. -Encourage IS 10x/hr -Dispo: Clincally pending *I reviewed and discussed this case with my attending Dr. Leach, whom has reviewed this chart and films and is in agreement with assessment and plan of care as outlined above. I have personally seen and examined the patient, performed the documentation and the assessment and plan as written. Number of minutes spent on the visit: 20m.
[2023-08-20] MEDS: RIVAROXABAN 10 MG TAB PO SCH (08:02)
[2023-08-20 10:11] LABS: Basophils # (A) 0.02 X 10*3/uL (0.00-0.10); Basophils % (A) 0.2 %; Eosinophils # (A) 0.19 X 10*3/uL (0.04-0.35); Eosinophils % (A) 1.8 %; HGB 11.5 g/dL (13.0-17.0); Lymphocytes # (A) 1.55 X 10*3/uL (0.90-5.00); MCH 26.6 pg (27.0-32.0); MCHC 32.9 g/dL (32.0-37.0); Mean Platelet Volume 10.5 FL (9.5-12.2); Monocytes # (A) 1.03 X 10*3/uL (0.20-1.00); NRBC Per 100 WBC 0 X 10*3/uL (0.00-0.01); Neutrophils # (A) 7.43 X 10*3/uL (1.80-7.70); Neutrophils % (A) 72.1 %; Platelet Count 135 X 10*3/uL (140-440); RBC 4.32 X 10*6/uL (4.40-5.60); RDW 12.8 % (11.5-14.5); WBC 10.31 X 10*3/uL (4.50-10.00)
[2023-08-20 10:52] LABS: BUN/Creat Ratio 13.75 Ratio (12.00-20.00); Calcium 8.4 mg/dL (8.7-10.3); Carbon Dioxide 28.8 mmol/L (21.6-31.8); Chloride 97 mmol/L (96-109); Glucose 177 mg/dL (70-110); Potassium 4.2 mmol/L (3.5-5.5); Sodium 135 mmol/L (135-145)
[2023-08-20] MEDS: HYDROmorphone 0.5 MG/0.5 ML SYRINGE IVP PRN (11:09)
[2023-08-20 11:23] LABS: INR 1.06 sec (0.93-1.11); Prothrombin Time 11.4 sec (9.9-11.9)
[2023-08-20 11:46] LABS: Glucose,Whole Blood 224 mg/dL (70-110)
--- NOTE | 2023-08-20 13:06 | P.PN ---
Subjective Progress Note Date: 08/20/23 * 53-year-old gentleman past medical history significant for coronary artery disease, hypertension, hyperlipidemia, diabetes mellitus presented to ER because of fall. Patient stated he was all right this morning and while ambulating in his porch he missed a step and landed on his left side. There was no complete loss of consciousness. There was no complaint of lightheadedness or dizziness. Patient denied any jerking movement of any extremity. She started complaining of pain in his left hip. Because of the left hip pain, patient was brought to the ER. * EKG done in the ER showed heart rate of 78, no ST segment elevation or depression seen, no T-wave inversions seen. * Chest x-ray done in the ER showed cardiomegaly without acute pulmonary process * X-ray tibia-fibula left showed no acute displaced fracture of the tibia or fibula * X-ray femur and pelvis done showed acute displaced impacted fracture throughout the transverse cervical region of the femoral neck of the left proximal femur * 08/19/23: Patient seen and evaluated postprocedure, mother at bedside, patient states pain is under control, we will follow-up on electrolyte panel and CBC. Denies of any acute issues * 08/20/23: Patient seen and evaluated bedside, on evaluation patient complains of left hip pain, pain medications ordered, patient counseled regarding excessive use of pain medication. Care plan discussed with nursing staff. Follow-up hemoglobin reviewed 11.5 CBC showed WBC count of 10.3 electrolyte panel reviewed blood glucose 172 224 PHYSICAL EXAMINATION: GENERAL: The patient is alert and oriented x3, HEENT: Pupils are round and equally reacting to light. EOMI. No scleral icterus. CARDIOVASCULAR: S1 and S2 present. No murmurs, rubs, or gallops. PULMONARY: Chest is clear to auscultation, no wheezing or crackles. ABDOMEN: Soft, nontender, nondistended, normoactive bowel sounds. No palpable organomegaly. MUSCULOSKELETAL: S/p left hip surgery, left elbow bandage EXTREMITIES: No cyanosis, clubbing, or pedal edema. Left hip tenderness NEUROLOGICAL: Gross neurological examination did not reveal any focal deficits. SKIN: No rashes. Assessment and plan * Fall with trauma * Left impacted femoral neck fracture s/p left total hip arthroplasty less fate anterior approach postoperative day 1 * Hypertension * Hyperlipidemia * Fff-djxujrv-nfgaxsscu diabetes mellitus * Orthopedics on board, planning surgery . Orthopedic team primary * In regards to diabetes mellitus continue Accu-Cheks ACHS continue correctional insulin, continue glimepiride * Regards to postoperative DVT prophylaxis patient on Xarelto, monitor CBC * Regards to history of hypertension continue Coreg, Cozaar on hold to prevent hypotension Objective - Vital Signs Vital signs: Vital Signs Temp 97.9 F 08/20/23 07:38 Pulse 79 08/20/23 07:38 Resp 18 08/20/23 07:38 BP 130/76 08/20/23 07:38 Pulse Ox 95 08/20/23 07:38 FiO2 Intake & Output 08/19/23 08/20/23 08/20/23 18:59 06:59 18:59 Intake Total 950 Output Total 1250 1600 500 Balance -300 -1600 -500 Intake: IV 950 Output: Urine 1050 1600 500 Uretheral (Damon) 400 Estimated Blood Loss 200 Other: Voiding Method Indwelling Catheter Indwelling Catheter - Labs CBC & Chem 7: 08/20/23 06:19 08/20/23 06:19 Labs: Abnormal Lab Results - Last 24 Hours (Table) 08/19/23 08/19/23 08/19/23 Range/Units 07:05 16:59 20:52 WBC (4.50-10.00) X 10*3/uL RBC (4.40-5.60) X 10*6/uL Hgb (13.0-17.0) g/dL Hct (39.6-50.0) % MCH (27.0-32.0) pg Plt Count (140-440) X 10*3/uL Immature Gran # (0.00-0.04) X 10*3/uL Monocytes # (0.20-1.00) X 10*3/uL Glucose (70-110) mg/dL POC Glucose (mg/dL) 203 H 176 H (70-110) mg/dL Hemoglobin A1c 8.2 H (<=6.0) % Calcium (8.7-10.3) mg/dL 08/20/23 08/20/23 08/20/23 Range/Units 06:09 06:19 06:19 WBC 10.31 H (4.50-10.00) X 10*3/uL RBC 4.32 L (4.40-5.60) X 10*6/uL Hgb 11.5 L (13.0-17.0) g/dL Hct 35.0 L (39.6-50.0) % MCH 26.6 L (27.0-32.0) pg Plt Count 135 L (140-440) X 10*3/uL Immature Gran # 0.09 H (0.00-0.04) X 10*3/uL Monocytes # 1.03 H (0.20-1.00) X 10*3/uL Glucose 177 H (70-110) mg/dL POC Glucose (mg/dL) 174 H (70-110) mg/dL Hemoglobin A1c (<=6.0) % Calcium 8.4 L (8.7-10.3) mg/dL / Range/Units 11:44 WBC (4.50-10.00) X 10*3/uL RBC (4.40-5.60) X 10*6/uL Hgb (13.0-17.0) g/dL Hct (39.6-50.0) % MCH (27.0-32.0) pg Plt Count (140-440) X 10*3/uL Immature Gran # (0.00-0.04) X 10*3/uL Monocytes # (0.20-1.00) X 10*3/uL Glucose (70-110) mg/dL POC Glucose (mg/dL) 224 H (70-110) mg/dL Hemoglobin A1c (<=6.0) % Calcium (8.7-10.3) mg/dL
[2023-08-20 16:56] LABS: Glucose,Whole Blood 232 mg/dL (70-110)
[2023-08-20 20:43] LABS: Glucose,Whole Blood 146 mg/dL (70-110)
[2023-08-21 06:19] LABS: Glucose,Whole Blood 226 mg/dL (70-110)
[2023-08-21 08:43] LABS: BUN/Creat Ratio 18.86 Ratio (12.00-20.00); Blood Urea Nitrogen 13.2 mg/dL (9.0-27.0); Calcium 8.3 mg/dL (8.7-10.3); Carbon Dioxide 27.3 mmol/L (21.6-31.8); Chloride 97 mmol/L (96-109); Glucose 216 mg/dL (70-110); Potassium 4.1 mmol/L (3.5-5.5); Sodium 134 mmol/L (135-145)
--- NOTE | 2023-08-21 09:33 | P.PN ---
Subjective Progress Note Date: 08/21/23 Principal diagnosis: Fall with trauma Patient seen and examined this morning. Patient is resting comfortable in bed. Surgical incision to the anterior left hip, edges are well approximated glue intact. No active drainage. Patient has been ambulatory within room and to restroom with rolling walker, tolerating activity well. He is looking forward to working with physical therapy. He is wanting to go home later today. Patient states his pain has been managed on current regimen. Continue to encourage patient to use incentive spirometer. No acute concerns. Objective - Vital Signs Vital signs: Vital Signs Temp 98.4 F 08/21/23 07:29 Pulse 77 08/21/23 07:29 Resp 18 08/21/23 07:29 BP 107/68 08/21/23 07:29 Pulse Ox 93 L 08/21/23 07:29 FiO2 Intake & Output 08/20/23 08/21/23 08/21/23 18:59 06:59 18:59 Output Total 1300 Balance -1300 Output: Urine 1300 Other: # Voids 1 - Exam Inspection: Negative for any open fractures, ecchymosis, significant erythem a/ulcers. Surgical incision into the anterior left hip, incision is well approximated with glue intact. Sensation: Sensation is equal, symmetric, bilaterally intact throughout the upper and lower extremities Palpation: Nontender to palpation throughout bilateral upper and right lower extremities and throughout spine exam. Tenderness to palpation over the left hip Range of motion: Patient does have full range of motion bilateral upper and right lower extremities on exam. Limited range of motion due to fracture and pain. Motor: 5/5 in all major motor groups in the bilateral upper and right lower extremities. 4-/5 left lower extremity Special tests: Logroll maneuver of the left lower extremity produces pain. Neurovascular: Radial pulse intact, 2+ bilaterally. Cap refill under 3 seconds in digits upper extremities. - Labs CBC & Chem 7: 08/20/23 06:19 08/21/23 05:22 Labs: Abnormal Lab Results - Last 24 Hours (Table) 08/20/23 08/20/23 08/20/23 Range/Units 06:19 06:19 11:44 WBC 10.31 H (4.50-10.00) X 10*3/uL RBC 4.32 L (4.40-5.60) X 10*6/uL Hgb 11.5 L (13.0-17.0) g/dL Hct 35.0 L (39.6-50.0) % MCH 26.6 L (27.0-32.0) pg Plt Count 135 L (140-440) X 10*3/uL Immature Gran # 0.09 H (0.00-0.04) X 10*3/uL Monocytes # 1.03 H (0.20-1.00) X 10*3/uL Sodium (135-145) mmol/L Glucose 177 H (70-110) mg/dL POC Glucose (mg/dL) 224 H (70-110) mg/dL Calcium 8.4 L (8.7-10.3) mg/dL 08/20/23 08/20/23 08/21/23 Range/Units 16:55 20:38 05:22 WBC (4.50-10.00) X 10*3/uL RBC (4.40-5.60) X 10*6/uL Hgb (13.0-17.0) g/dL Hct (39.6-50.0) % MCH (27.0-32.0) pg Plt Count (140-440) X 10*3/uL Immature Gran # (0.00-0.04) X 10*3/uL Monocytes # (0.20-1.00) X 10*3/uL Sodium 134 L (135-145) mmol/L Glucose 216 H (70-110) mg/dL POC Glucose (mg/dL) 232 H 146 H (70-110) mg/dL Calcium 8.3 L (8.7-10.3) mg/dL 08/21/23 Range/Units 06:17 WBC (4.50-10.00) X 10*3/uL RBC (4.40-5.60) X 10*6/uL Hgb (13.0-17.0) g/dL Hct (39.6-50.0) % MCH (27.0-32.0) pg Plt Count (140-440) X 10*3/uL Immature Gran # (0.00-0.04) X 10*3/uL Monocytes # (0.20-1.00) X 10*3/uL Sodium (135-145) mmol/L Glucose (70-110) mg/dL POC Glucose (mg/dL) 226 H (70-110) mg/dL Calcium (8.7-10.3) mg/dL Assessment and Plan Assessment: Post op Day 2: Left total hip arthroplasty Fall with trauma Left impacted femoral neck fracture Multiple comorbidities Plan: -Appreciate hearing consultant and team management. -Activity: Ambulate QID, OOB all meals, up and about, Use walker or cane if needed for stability. -Daily PT/OT, increase ambulation strength and balance. -Prescription placed in chart for Rollator. -Pain control: Adequate at this time -Meds: reviewed -GI ppx: senna, Miralax -DVT PPX: Xarelto -Hygiene: Maintain dressing clean and dry. -Encourage IS 10x/hr -Dispo: Possible discharge home with homecare vs ROBIN later today. *I reviewed and discussed this case with my attending Dr. Leach, whom has reviewed this chart and films and is in agreement with assessment and plan of care as outlined above. I have personally seen and examined the patient, performed the documentation and the assessment and plan as written. Number of minutes spent on the visit: 20m.
[2023-08-21 10:44] LABS: INR 1.05 sec (0.93-1.11); Prothrombin Time 11.3 sec (9.9-11.9)
[2023-08-21] MEDS: ACETAMINOPHEN TAB 325 MG TAB PO PRN (11:22)
[2023-08-21 11:30] LABS: Glucose,Whole Blood 256 mg/dL (70-110)
--- NOTE | 2023-08-21 15:14 | P.DS ---
Providers Date of admission: 08/18/23 03:55 Expected date of discharge: 08/21/23 Attending physician: Juan Carlos Hernandez Consults: 08/18/23 02:44 Consult Physician Urgent Consulting Provider: Christopher Roberts Consult Reason/Comments: Medical clearance left hip fx Do you want consulting provider notified?: Yes Primary care physician: Emanuel [facility] Course: Hospital Course: The patient was evaluated preoperatively and found to have the diagnosis of left hip fracture. They underwent appropriate preoperative care and were willing to undergo the intended procedure. They underwent a successful anterior left total hip arthroplasty, were recovered appropriately and sent to the floor. While on the floor they worked with physical therapy, occupational therapy and nursing to enhance their recovery experience. Their pain was well controlled through their stay and they were started on appropriate medications, DVT ppx modalities, act ivity and dietary needs. Daily labs were monitored closely, and transfusions were only used when necessary. Medicine as well as other consulting services have made their input and have helped with our team approach and multidisciplinary care. PT milestones have been met and passed and they have made the recommendation of home with home care for this patient and treating providers agree with this care path. The patient will be discharged home with appropriate medications, instructions and follow-up information and in stable condition. Patient Condition at Discharge: Good Plan - Discharge Summary Discharge Rx Participant: No New Discharge Prescriptions: New HYDROcodone/APAP 10-325MG [[place] 10-325] 1 tab PO Q4-6H PRN #28 tab PRN Reason: Pain Sennosides/Docusate Sodium [Senna Plus 8.6-50 mg Tablet] 1 each PO DAILY PRN #20 tablet PRN Reason: Constipation Apixaban [Eliquis] 5 mg PO DAILY #30 tablet No Action lamoTRIgine [LaMICtal] 150 mg PO BID@0900,2100 Atomoxetine HCl [Strattera] 100 mg PO DAILY@0900 Losartan Potassium [Cozaar] 100 mg PO DAILY@0900 OXcarbazepine [Trileptal] 150 mg PO HS@2100 Glimepiride [Amaryl] 4 mg PO DAILY@0900 Atorvastatin [Lipitor] 20 mg PO HS@2100 hydroCHLOROthiazide [Hydrodiuril] 25 mg PO DAILY@0700 Empagliflozin [Jardiance] 25 mg PO W/SUPPER carvediloL [Coreg] 25 mg PO BID@0700,1700 HYDROcodone/APAP 10-325MG [[place] 10-325] 1 tab PO BID Ascorbic Acid [Vitamin C with Paula Hips] 1,000 mg PO DAILY metFORMIN HCL [Glucophage] 500 mg PO DAILY@0900 Cholecalciferol [Vitamin D3 (25 Mcg = 1000 Iu)] 25 mcg PO Q2D HYDROcodone/APAP 10-325MG [[place] 10-325] 1 tab PO DAILY PRN PRN Reason: Pain Venlafaxine HCl ER [Effexor XR] 150 mg PO DAILY@0900 traZODone HCL [Desyrel] 150 mg PO HS@2100 Levocetirizine Dihydrochloride [Xyzal] 5 mg PO HS@2100 Vascepa 1 Gram 1 gram PO BID@0700,1700 Discharge Medication List Atomoxetine HCl [Strattera] 100 mg PO DAILY@0900 04/08/19 [History] Atorvastatin [Lipitor] 20 mg PO HS@209904/08/19 [History] Empagliflozin [Jardiance] 25 mg PO W/SUPPER 04/08/19 [History] Glimepiride [Amaryl] 4 mg PO DAILY@0900 04/08/19 [History] Losartan Potassium [Cozaar] 100 mg PO DAILY@0900 04/08/19 [History] OXcarbazepine [Trileptal] 150 mg PO HS@2100 04/08/19 [History] carvediloL [Coreg] 25 mg PO BID@0700,1700 04/08/19 [History] hydroCHLOROthiazide [Hydrodiuril] 25 mg PO DAILY@0700 04/08/19 [History] lamoTRIgine [LaMICtal] 150 mg PO BID@0900,2100 04/08/19 [History] Venlafaxine HCl ER [Effexor XR] 150 mg PO DAILY@0900 10/14/20 [History] Ascorbic Acid [Vitamin C with Paula Hips] 1,000 mg PO DAILY 08/18/23 [History] Cholecalciferol [Vitamin D3 (25 Mcg = 1000 Iu)] 25 mcg PO Q2D 08/18/23 [History] HYDROcodone/APAP 10-325MG [[place] 10-325] 1 tab PO BID 08/18/23 [History] HYDROcodone/APAP 10-325MG [[place] 10-325] 1 tab PO DAILY PRN 08/18/23 [History] Levocetirizine Dihydrochloride [Xyzal] 5 mg PO HS@2100 08/18/23 [History] Vascepa 1 Gram 1 gram PO BID@0700,1700 08/18/23 [History] metFORMIN HCL [Glucophage] 500 mg PO DAILY@0900 08/18/23 [History] traZODone HCL [Desyrel] 150 mg PO HS@2100 08/18/23 [History] Apixaban [Eliquis] 5 mg PO DAILY #30 tablet 08/21/23 [Rx] HYDROcodone/APAP 10-325MG [[place] 10-325] 1 tab PO Q4-6H PRN #28 tab 08/21/23 [Rx] Sennosides/Docusate Sodium [Senna Plus 8.6-50 mg Tablet] 1 each PO DAILY PRN #20 tablet 08/21/23 [Rx] Follow up Appointment(s)/Referral(s): [facility], [NON-STAFF] - As Needed [facility] [NON-STAFF] - As Needed (rollator walker) Emanuel Rankin DO [Primary Care Provider] - 1-2 days Juan Carlos Hernandez MD [STAFF PHYSICIAN] - 2 Weeks Activity/Diet/Wound Care/Special Instructions: Orthopedic Discharge Instructions: Wound care and infection precautions, keep incision dry and covered while showering, no lotions, creams, moisturizers. No soaking, pools, hot tubs. Do not scrub over incision. WBAT with walker Ice and elevate when necessary. Do not exceed 20 minutes per hour with ice pack. Pain meds and anticoagulants per prescription. Pain medication has potential to cause constipation. Increase oral fluid and fiber intake. Contact primary care provider if you have not had a bowel movement within 48 hours after discharge. No anti-inflammatory medication until discussed at first post operative visit, this including Motrin, Aleve, Mobic, Diclofenac, Aspirin. Follow up in office at 2 weeks postop Follow up with your primary care doctor 7-10 days after discharge. Contact [facility] with any questions, . Discharge Disposition: HOME WITH HOME HEALTH SERVICES
[2023-08-21 16:28] LABS: Glucose,Whole Blood 128 mg/dL (70-110)
[2023-08-21] MEDS: TAMSULOSIN 0.4 MG CAP.ER.24H PO SCH (17:31)
[2023-08-21 20:45] LABS: Glucose,Whole Blood 245 mg/dL (70-110)
[2023-08-22 05:50] LABS: Glucose,Whole Blood 119 mg/dL (70-110)
--- NOTE | 2023-08-22 07:15 | P.PN ---
Subjective Progress Note Date: 08/21/23 53-year-old gentleman past medical history significant for coronary artery disease, hypertension, hyperlipidemia, diabetes mellitus presented to ER because of fall. Patient stated he was all right this morning and while ambulating in his porch he missed a step and landed on his left side. There was no complete loss of consciousness. There was no complaint of lightheadedness or dizziness. Patient denied any jerking movement of any extremity. She started complaining of pain in his left hip. Because of the left hip pain, patient was brought to the ER. * EKG done in the ER showed heart rate of 78, no ST segment elevation or depression seen, no T-wave inversions seen. * Chest x-ray done in the ER showed cardiomegaly without acute pulmonary process * X-ray tibia-fibula left showed no acute displaced fracture of the tibia or fibula * X-ray femur and pelvis done showed acute displaced impacted fracture throughout the transverse cervical region of the femoral neck of the left proximal femur * 08/19/23: Patient seen and evaluated postprocedure, mother at bedside, patient states pain is under control, we will follow-up on electrolyte panel and CBC. Denies of any acute issues * 08/20/23: Patient seen and evaluated bedside, on evaluation patient complains of left hip pain, pain medications ordered, patient counseled regarding excessive use of pain medication. Care plan discussed with nursing staff. Follow-up hemoglobin reviewed 11.5 CBC showed WBC count of 10.3 electrolyte panel reviewed blood glucose 172 224 08/21/2023 Patient is seen in follow-up today currently working with physical therapy reports to doing well although is fearful of going home today as he reports he feels weak and unsteady with continued pain and is status post left hip arthroplasty. Orthopedics as attending to continue with pain management as ordered. Patient reports having some difficulty with urination although is voiding and monitoring postvoid residuals. Flomax has been started. Encouraged to increase activity as tolerated and continued incentive spirometer use at least 10 times every hour while awake. Will continue with Accu-Cheks before meals and at bedtime and sliding scale for now and resume home medications on discharge. Review of systems: Constitutional: No reports of fatigue, fever, or chills Cardiovascular: No reports of chest pain or palpitations Respiratory: No reports of shortness of breath or cough GI: No reports of nausea, vomiting, or diarrhea : No reports of dysuria, reports mild retention postoperatively although is voiding Neurovascular: reports of weakness and continued left hip tenderness All medications have been reviewed PHYSICAL EXAMINATION: GENERAL: The patient is alert and oriented x3, well-developed, well-nourished, appears elderly, unkept HEENT: Pupils are round and equally reacting to light. EOMI. No scleral icterus. CARDIOVASCULAR: S1 and S2 present. No murmurs, rubs, or gallops. PULMONARY: Chest is clear to auscultation, no wheezing or crackles. ABDOMEN: Soft, nontender, nondistended, normoactive bowel sounds. No palpable organomegaly. MUSCULOSKELETAL: S/p left hip surgery, left elbow bandage EXTREMITIES: No cyanosis, clubbing, or pedal edema. Left hip tenderness NEUROLOGICAL: Gross neurological examination did not reveal any focal deficits. SKIN: No rashes. Assessment: * Fall with trauma * Left impacted femoral neck fracture s/p left total hip arthroplasty less fate anterior approach postoperative day 1 * Hypertension * Hyperlipidemia * [id number] diabetes mellitus Plan: * Orthopedics on board, patient is status post left total hip arthroplasty. Orthopedic team primary * In regards to diabetes mellitus continue Accu-Cheks ACHS continue correctional insulin, continue glimepiride * Regards to postoperative DVT prophylaxis patient on Xarelto * Regards to history of hypertension continue Coreg, Cozaar on hold to prevent hypotension, resume on discharge * Patient was reporting some initial difficulty in urination and started on Flomax. Patient is urinating Encouraged incentive spirometer use at least 10 times every hour while awake and increased activity as tolerated. Patient evaluated by physical therapy with plans on returning home with home care. Patient reports significant amount of pain and will continue with pain management per orthopedics. Patient is medically stable once cleared for discharge We will continue to follow with orthopedics during hospitalization The impression and plan of care has been dictated by Nuris Billingsley, Nurse Practitioner as directed. MD Perez I have performed a history and examination and MDM of this patient, discussed the same with the dictator, and agree with the dictator's assessment and plan as written ,documented as a scribe. Based on total visit time, I have performed more than 50% of the visit. Objective - Vital Signs Vital signs: Vital Signs Temp 98.1 F 08/22/23 01:30 Pulse 76 08/22/23 01:30 Resp 15 08/22/23 01:30 BP 129/76 08/22/23 01:30 Pulse Ox 99 08/22/23 01:30 FiO2 Intake & Output 08/21/23 08/22/23 08/22/23 18:59 06:59 18:59 Other: Voiding Method Indwelling Catheter Toilet Urinal # Voids 3 2 - Labs CBC & Chem 7: 08/20/23 06:19 08/21/23 05:22 Labs: Abnormal Lab Results - Last 24 Hours (Table) 08/21/23 08/21/23 08/21/23 Range/Units 05:22 11:29 16:26 Sodium 134 L (135-145) mmol/L Glucose 216 H (70-110) mg/dL POC Glucose (mg/dL) 256 H 128 H (70-110) mg/dL Calcium 8.3 L (8.7-10.3) mg/dL 08/21/23 08/22/23 Range/Units 20:33 05:49 Sodium (135-145) mmol/L Glucose (70-110) mg/dL POC Glucose (mg/dL) 245 H 119 H (70-110) mg/dL Calcium (8.7-10.3) mg/dL
[2023-08-22 07:50] VITALS: BP 109/64; PULSE 73; RESP 18; TEMP 98.3
--- NOTE | 2023-08-22 08:48 | P.PN ---
Progress Note - Text Progress Note Date: 08/22/23 Patient to discharge at 1100am today. Patient was unable to discharge yesterday due to transportation.
[2023-08-22 08:54] LABS: Basophils # (A) 0.03 X 10*3/uL (0.00-0.10); Basophils % (A) 0.3 %; Eosinophils % (A) 2.1 %; HCT 29.1 % (39.6-50.0); HGB 9.5 g/dL (13.0-17.0); Lymphocytes # (A) 2.38 X 10*3/uL (0.90-5.00); Lymphocytes % (A) 25.3 %; MCH 26.5 pg (27.0-32.0); MCHC 32.6 g/dL (32.0-37.0); MCV 81.3 FL (80.0-97.0); Mean Platelet Volume 10.4 FL (9.5-12.2); Monocytes # (A) 1.02 X 10*3/uL (0.20-1.00); Monocytes % (A) 10.8 %; NRBC Per 100 WBC 0.02 X 10*3/uL (0.00-0.01); Neutrophils # (A) 5.75 X 10*3/uL (1.80-7.70); Neutrophils % (A) 61.1 %; Platelet Count 163 X 10*3/uL (140-440); RBC 3.58 X 10*6/uL (4.40-5.60); WBC 9.42 X 10*3/uL (4.50-10.00)
[2023-08-22 08:56] LABS: INR 1.06 sec (0.93-1.11); Prothrombin Time 11.4 sec (9.9-11.9)
[2023-08-22] MEDS: PANTOPRAZOLE 40 MG TABLET PO SCH (09:28)
== END 2023-08-22 13:19 | disposition home health service (06) | DRG 522 ==
LOC: EC 00:50 → 4SSUR 03:55
PROVIDERS: ADMIT Orthopaedic Surgery; ATTEND Orthopaedic Surgery
PROC: 0SRB02A Replacement of Left Hip Joint with Metal on Polyethylene Synthetic Substitute, Uncemented, Open Approach (ICD-10-PCS; principal; 2023-08-19 07:30)
DX: S72.032A Displaced midcervical fracture of left femur, initial encounter for closed fracture (principal); W10.8XXA Fall (on) (from) other stairs and steps, initial encounter; Y92.018 Other place in single-family (private) house as the place of occurrence of the external cause; I25.10 Atherosclerotic heart disease of native coronary artery without angina pectoris; K21.9 Gastro-esophageal reflux disease without esophagitis; I50.9 Heart failure, unspecified; I11.0 Hypertensive heart disease with heart failure; E78.5 Hyperlipidemia, unspecified; F90.9 Attention-deficit hyperactivity disorder, unspecified type; F41.9 Anxiety disorder, unspecified; F31.9 Bipolar disorder, unspecified; E11.9 Type 2 diabetes mellitus without complications; Z87.891 Personal history of nicotine dependence; Z88.8 Allergy status to other drugs, medicaments and biological substances; Z79.899 Other long term (current) drug therapy; Z79.84 Long term (current) use of oral hypoglycemic drugs
CPT/HCPCS: 51702; 71045; 72170; 73501; 80048; 80053; 83036; 84484; 85025; 85610; 93005; 94760; 96361; 96372; 96374; 96376; 99285

== ENCOUNTER → 2024-04-15 | Outpatient (CLI) | payer MEDICARE, OTHER ==
--- NOTE | 2024-04-16 18:54 | MR ---
EXAMINATION TYPE: MR brain wo con DATE OF EXAM: 04/15/2024 3:23 PM COMPARISON: 06/04/2022 CLINICAL INDICATION: Male, 54 years old with history of R41.3 Short term memory loss; PHH, Short Term Memory Loss TECHNIQUE: Multi planar, multi sequence imaging was performed through the brain including: T1, T2, In version recovery, Diffusion weighted imaging, and gradient echo imaging. No gadolinium was given. FINDINGS: Mild cerebral atrophy with proportional dilation of ventricular system. Scattered foci of high T2 s ignal intensity are seen within the periventricular white matter. Midline structures show no abnormal ity. Diffusion-weighted imaging shows no evidence of restricted diffusion. The susceptibility weighte d images do not reveal any evidence for micro-hemorrhage. The bone marrow signal is within normal limits. Paranasal sinuses and mastoid air cells: No significant paranasal sinus disease. Visualized orbits: Orbital contents are intact. IMPRESSION: 1. No evidence of intracranial mass or acute/subacute infarct. 2. Nonspecific white matter changes, likely secondary to small vessel ischemic disease. [facility], , 04/16/2024 6:52 PM
== END | disposition home or self-care (01) ==
LOC: RADMRIMAIN 11:02
PROVIDERS: ATTEND Psychiatry & Neurology Neurology
DX: R90.82 White matter disease, unspecified (principal); R41.3 Other amnesia
CPT/HCPCS: 70551

== ENCOUNTER → 2024-08-21 | Outpatient (CLI) | payer MEDICARE, OTHER ==
[2024-08-21 14:21] VITALS: BP 114/71; PULSE 76; RESP 16; TEMP 98.3
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
== END ==
LOC: 3 N SLEEP 13:45
PROVIDERS: ATTEND Internal Medicine
DX: G47.33 Obstructive sleep apnea (adult) (pediatric) (principal); E66.9 Obesity, unspecified; I10 Essential (primary) hypertension; E78.5 Hyperlipidemia, unspecified; F31.9 Bipolar disorder, unspecified; F90.9 Attention-deficit hyperactivity disorder, unspecified type; F17.210 Nicotine dependence, cigarettes, uncomplicated; Z96.642 Presence of left artificial hip joint; Z68.30 Body mass index [BMI] 30.0-30.9, adult; Z88.8 Allergy status to other drugs, medicaments and biological substances; Z91.012 Allergy to eggs; Z91.013 Allergy to seafood
CPT/HCPCS: 99211

== ENCOUNTER 2024-10-01 19:39 | Outpatient (CLI) | payer MEDICARE, OTHER ==
--- NOTE | 2024-10-09 10:41 | P.PCN ---
Description of Procedure: POLYSOMNOGRAPHY REPORT PROCEDURE(S)/DATE(S): Polysomnography 10/01/2024 CLINICAL: Patient has been seen in the sleep center for evaluation of obstructive sleep apnea-hypopnea syndrome. Please see my consultation. Sleep study has been done for evaluation of patient breathing during the sleep. PROCEDURE: The standard montage for clinical polysomnography included the electroencephalogram, the electrooculogram, the mentalis surface electromyography and Lead II cardiography. The respiratory battery consisted of measurements of nasal/buccal air flow, pressure transducer measurements from nose, thoracic and/or abdominal effort and intercostal surface electromyography. Video monitoring has been done to check for any parasomnia events. Nocturnal oxyhemoglobin saturations were obtained by finger oximetry. Step-schneider titration with positive airway pressure was utilized to control the respiratory events, if necessary. RESULTS: During the diagnostic sleep study sleep efficiency was 88.2%. Latency to sleep onset was normal at 21.5 min. Sleep architecture showed stage NI was increased to 15.3%, Delta sleep was normal at 15.5%, REM sleep was extremely short 0.8%. Respiratory channel showed 1 obstructive apneas, 0 mixed apneas, 0 central apneas, 350 hypopneas with lowest oxygen level 74%. Total apnea hypopnea index was 57.6. Heart rate was in the range between 66 and 74. EMG showed 62.4 periodic limb movements per hour with 0.3 micro-arousals per hour. IMPRESSIONS: 1. Severe obstructive sleep apnea hypopnea syndrome. 2. Severe periodic limb movements have been documented. Please see other impressions from consultation PLAN: 1. The patient will have PAP titration for correction of respiratory abnormalities during the sleep. 2. Losing weight. 3. Sleep hygiene with regular time in bed for at least 7-1/2 hours. 4. No driving if feeling sleepiness. 5. Please check iron profile including ferritin level. Low level of iron may increase the risk for periodic limb movements. Thank you very much for allowing me to participate in the management of your patient. Sincerely, Tiburcio Mo MD, PhD, FAASM. Diplomat of [place] [employer], Sleep Medicine Board by [place] [employer] Transitions Manager of [facility] [place] cc: Brianda Rankin DO
== END 2024-10-02 05:35 | disposition home or self-care (01) ==
LOC: 3 N SLEEP 19:39
PROVIDERS: ATTEND Internal Medicine
DX: G47.33 Obstructive sleep apnea (adult) (pediatric) (principal); G47.61 Periodic limb movement disorder; F17.200 Nicotine dependence, unspecified, uncomplicated; Z91.012 Allergy to eggs; Z91.013 Allergy to seafood; Z88.8 Allergy status to other drugs, medicaments and biological substances
CPT/HCPCS: 95810

== ENCOUNTER 2024-11-18 19:41 | Outpatient (CLI) | payer MEDICARE, OTHER ==
--- NOTE | 2024-11-28 11:35 | P.PCN ---
Description of Procedure: CLINICAL: Titration with positive air pressure has been done for correction of respiratory abnormalities during sleep. DESCRIPTION OF PROCEDURE: The standard montage for clinical polysomnography included the electroencephalogram, the electrocardiogram, the mentalis surface electromyography and Lead II cardiography. The respiratory battery consisted of measurements of nasal /buccal air flow, pressure transducer measurements from the nose, thoracic and /or abdominal effort and intercostal surface electromyography. Video monitoring has been done to check for any parasomnia events. Nocturnal oxyhemoglobin saturations were obtained by finger oximetry. Step-schneider titration with positive airway pressure was utilized to control respiratory events. Raw data of sleep recording has been reviewed and is adequate. RESULTS: Sleep efficiency was normal 93.1%. Latency to sleep onset was normal 11.0 minutes.]. Sleep architecture showed stage N1 was extremely short 0.5%, Delta sleep was absent 0%, REM sleep was decreased to 14.6%. Heart rate was minimum 69 BPM, maximum 75 BPM, average 71 BPM. EMG showed 36.0 periodic limb movements per hour with 0.3 micriarousals per hour. PAP titration have been done with CPAP up to the pressure 13 cm H2O. Patient continued to have abnormalities of respiration and REM sleep with CPAP, switched to BPAP. BPAP titrated up to 17/13 cm H2O. The best results were at the pressure 17/13 cm H2O. Apnea hypopnea index reduced to 3.6. IMPRESSION: 1. Severe obstructive sleep apnea hypopnea syndrome original apnea hypopnea index 57.6 on controle with BPAP treatment. 2. Significant periodic limb movements have been documented. Please see other impressions from consultation. PLAN: 1. The patient will have treatment with positive air pressure equipment with the level of pressure auto BiPAP with maximal inspiratory pressure 17 and minimal expiratory pressure 6 cm H2O and should use it every night for the whole night. 2. Watching weight. 3. Sleep hygiene with regular time in bed for at least 8 hours. 4. No driving if feeling any sleepiness. 5. I will see the patient for follow up visit to explain the results of the test, recommendations, check compliance with treatment and make any necessary adjustment related to mask fitting, pressure and humidification. 6. Please check iron profile including ferritin level. Low level of iron may increase risk for periodic limb movements Thank you very much for allowing me to participate in the management of your patient. Sincerely, Tiburcio oM MD, PhD, FAASM Diplomat of [employer] Sleep Medicine Board of [employer]er of [facility] [place] cc: Brianda Rankin DO
== END 2024-11-19 05:28 | disposition home or self-care (01) ==
LOC: 3 N SLEEP 19:41
PROVIDERS: ATTEND Internal Medicine
DX: G47.33 Obstructive sleep apnea (adult) (pediatric) (principal); G47.61 Periodic limb movement disorder; F17.200 Nicotine dependence, unspecified, uncomplicated; Z91.012 Allergy to eggs; Z91.013 Allergy to seafood; Z88.8 Allergy status to other drugs, medicaments and biological substances; Z99.89 Dependence on other enabling machines and devices
CPT/HCPCS: 95811

== ENCOUNTER → 2025-01-03 | Outpatient (CLI) | payer MEDICARE, OTHER ==
--- NOTE | 2025-01-03 17:37 | P.PROGSL ---
Subjective DATE: 06/24/2024 FOLLOW UP VISIT. Patient with obstructive sleep apnea hypopnea syndrome return to sleep center for follow-up visit. Recently patient had sleep study which documented obstructive sleep apnea hypopnea syndrome. Patient was initiated on PAP therapy and today is first visit after treatment was started. I discussed results of sleep studies with patient and family. Patient has severe sleep apnea with apnea hypopnea index 57.6 Patient to use equipment every night Larry Acevedo MD has problems with mask. The patient does not have significant problems with the mask, PAP pressure and humidification. [place] sleepiness scale is 2. I checked information from PAP unit. PAP unit pressure maximal inspiratory pressure 17, minimal expiratory pressure 6, pressure support 4, average pressure 10.6/6.6 cm H2O. Usage is 50% and 33% for more then 4 hours, average 6.75 hours per night. Leak is extremely high 120.0 l/m, which is in acceptable range. Apnea Hypopnea Index is significantly increased to 15.8, which is normal. Patient did not use mask in correct position. MEDICATIONS:1. Atorvastatin 2. Jardiance 3. Glimepiride 4. Losartan 5. Carvedilol 6. Hydrochlorothiazide 7. Lamictal 8. Venlafaxine During physical exam: GENERAL: A pleasant patient without any distress. VITAL SIGNS: BP 125/82, HR 86, RR 12, weight 187.0, temperature 97.8, oxygen saturation at room air 97. HEENT: PERRLA, EOMI.low position of soft palate, Mallapati 4 . NECK: Supple. No JVD. LUNGS: Clear to percussion and to auscultation. Good air exchange. No wheezing or rhonchi. HEART: S1, S2 regular. ABDOMEN: Soft and nontender.[] EXTREMITIES: No clubbing or cyanosis. COMMUNICATIONS PROFESSOR: Awake, alert, and oriented x3. No focal deficit. Impressions: 1. Obstructive sleep apnea-hypopnea syndrome. Patient has difficulties to use CPAP equipment secondary to mask problems. 2. Hypertension. 3. Diabetes mellitus. 4. Hyperlipidemia. 5. Bipolar. 6. History of ADHD. 7. Status post left hip replacement. We teached patient how to properly adjust position of the mask during sleep. Plan: 1. Continue using PAP equipment every night for the whole night. 2. To change air filter at least 1-2 times per month. 3. PAP unit should stay lower then position of the head. 4. Advised patient to remove all remaining water from humidifier canister daily and make it dry after each usage. Refill canister with fresh distilled water before each usage. 5. Sleep hygiene with regular time in bed for at least 8 hours. 6. Precautions related to driving. No driving if feel any sleepiness. 7. I will maintain prescription for PAP supplies including mask, tube, filters. 8. Follow up visit in 6 weeks or earlier if patient has any problems. 9. Watching weight. Thank you very much for allowing me to participate in the management of your patient. Tiburcio Mo MD, PhD, FAASM. Diplomat of [employer], Sleep Medicine Board by [employer] Supervisor of [facility] [place] Objective Home Medications: Home Medications Medication Instructions Recorded Confirmed Type Atomoxetine HCl [Strattera] 100 mg PO DAILY@0900 04/08/19 08/18/23 History Atorvastatin [Lipitor] 20 mg PO HS@2100 04/08/19 08/21/24 History Empagliflozin [Jardiance] 25 mg PO W/SUPPER 04/08/19 08/18/23 History Glimepiride [Amaryl] 4 mg PO DAILY@0900 04/08/19 08/18/23 History Losartan Potassium [Cozaar] 100 mg PO DAILY@0900 04/08/19 08/18/23 History OXcarbazepine [Trileptal] 150 mg PO HS@2100 04/08/19 08/18/23 History carvediloL [Coreg] 25 mg PO BID@0700,1700 04/08/19 08/21/24 History hydroCHLOROthiazide [Hydrodiuril] 25 mg PO DAILY@0700 04/08/19 08/21/24 History lamoTRIgine [LaMICtal] 150 mg PO BID@0900,2100 04/08/19 08/21/24 History Venlafaxine HCl ER [Effexor XR] 150 mg PO DAILY@0900 10/14/20 08/21/24 History Ascorbic Acid [Vitamin C with Paula 1,000 mg PO DAILY 08/18/23 08/18/23 History Hips] Cholecalciferol [Vitamin D3 (25 25 mcg PO Q2D 08/18/23 08/18/23 History Mcg = 1000 Iu)] Levocetirizine Dihydrochloride 5 mg PO HS@209908/18/23 08/18/23 History [Xyzal] Vascepa 1 Gram 1 gram PO BID@0700,1700 08/18/23 08/21/24 History metFORMIN HCL [Glucophage] 500 mg PO DAILY@0900 08/18/23 08/21/24 History traZODone HCL [Desyrel] 150 mg PO HS@2100 08/18/23 08/21/24 History Apixaban [Eliquis] 5 mg PO DAILY #30 tablet 08/21/23 Rx HYDROcodone/APAP 10-325MG [[place] 1 tab PO Q4-6H PRN #28 tab 08/21/23 Rx 10-325] Sennosides/Docusate Sodium [Senna 1 each PO DAILY PRN #20 tablet 08/21/23 Rx Plus 8.6-50 mg Tablet] Acetaminophen Tab [Tylenol] 650 mg PO Q6HR PRN tab 08/22/23 Rx Tamsulosin [Flomax] 0.4 mg PO PC-SUPPER #30 cap 08/22/23 Rx
== END ==
LOC: 3 N SLEEP 14:18
PROVIDERS: ATTEND Internal Medicine
CPT/HCPCS: 99212